=== PATIENT | male | born 1965 | race African-American/Black ===

== ENCOUNTER 2021-05-15 09:57 | Emergency (ER) | payer SELFPAY ==
--- OUTSIDE RECORDS SUMMARY | 2021-05-15 10:00 | XMS REPORT | Continuity of Care Document ---
:1965 Author Organization [facility] t Address [address] [place] [address] Care Team Providers Name Role Phone Asked, Pcp Primary Care Physician Unavailable Problems This patient has no known problems. Allergies, Adverse Reactions, Alerts This patient has no known allergies or adverse reactions. Social History Social Habit Start Date Stop Date Quantity Comments Source Sex Assigned At [address] 1965 [facility] 00:00:00 00:00:00 Smoking Status Start Date Stop Date Source Unknown if ever smoked [facility] Medications This patient has no known medications. Vital Signs Vital Name Observation Time Observation Value Comments Source Systolic blood 2021-05-09 08:11:19 196 mm[Hg] [facility] pressure Diastolic blood 2021-05-09 08:11:19 120 mm[Hg] [facility] pressure Heart rate 2021-05-09 08:11:19 76 /min [facility] Oxygen saturation in 2021-05-09 08:11:19 75 /min [facility] Arterial blood by Pulse oximetry Body temperature 2021-05-09 07:35:00 36.67 [facility] Respiratory rate 2021-05-09 07:35:00 22 /min [facility] Body height 2021-05-09 07:35:00 182.9 cm [facility] Body weight 2021-05-09 07:35:00 68.04 kg [facility] BMI 2021-05-09 07:35:00 20.34 kg/m2 [facility] Procedures This patient has no known procedures. Encounters Start End Encounter Admission Attending Care Care Encounter Source Date/Time Date/Time Type Type Clinicians Facility Department ID 2021-05-092021-05-09 Emergency [id number] [facility] 02:31:00 03:35:[id number] [id number] Hospit [id number] l .8 2021-05-09 2021-05-09 Emergency [facility] [id number] [place] 00:00:00 00:00:[address] Results This patient has no known results.
--- NOTE | 2021-05-15 12:00 | RAD REPORT ---
EXAM DESCRIPTION: CT - Head Brain Wo Cont - 05/15/2021 11:41 am CLINICAL HISTORY: Numbness COMPARISON: None TECHNIQUE: Computed axial tomography of the head was obtained. IV contrast was not requested. All CT scans are performed using dose optimization technique as appropriate and may include automated exposure control or mA/KV adjustment according to patient size. FINDINGS: An intracranial bleed is not seen . The ventricles are normal in caliber. No extra-axial fluid collection is noted. 6 millimeter low-density area right basal ganglia. . Fluid within the sinuses/ mastoids is not seen. IMPRESSION: A 6 millimeter low-density area right basal ganglia probably lacunar infarction. The age is indeterminate. MRI may be helpful for further evaluation
--- NOTE | 2021-05-15 12:59 | RAD REPORT ---
EXAM DESCRIPTION: MRI - Brain Wo Cont - 05/15/2021 12:43 pm CLINICAL HISTORY: lacunar infact 6mm Headache, drowsiness, suspicion of CVA COMPARISON: Head Brain Wo Cont dated 05/15/2021 TECHNIQUE: Multi-sequence, multiplanar MR imaging of the brain was performed without contrast. FINDINGS: No intracranial hemorrhage, hydrocephalus or extra-axial fluid collections.6 mm area of hy perintensity in the right basal ganglia on T2/FLAIR imaging is seen, probably related to prior lacuna r infarct. No DWI signal abnormality seen correlating to this finding to indicate acute infarct. No e ivania or shift of midline structures. No findings to suspect brain mass. Small lipoma noted along the left aspect of the quadrigeminal plate cistern. Midline structures are normally formed. Mastoid air cells and paranasal sinuses are clear. IMPRESSION: Negative for acute CVA or other acute intracranial process.
--- NOTE | 2021-05-15 13:36 | EDPHYS ---
Physician Documentation [facility] Name: Deion Contreras Age: 55 yrs Sex: Male : 1965 Arrival Date: 05/15/2021 Time: 09:59 Bed 11 Private MD: ED Physician Buddy Mazariegos HPI: 05/15 11:06 This 55 yrs old Black Male presents to ER via Ambulatory with complaints of Back Pain, jr8 Headache, Leg Pain. 11:06 Modifying factors: The patient symptoms are alleviated by nothing, the patient symptoms jr8 are aggravated by walking. Severity of symptoms: At their worst the symptoms were moderate, in the emergency department the symptoms are unchanged. The patient has not experienced similar symptoms in the past. This is a 55-year-old male that presented to the emergency room today with headache and chronic low back pain radiating down the left leg. Patient stated that that he has had a headache for the last week but is progressively getting worse.. Historical: - Allergies: 14:27 No Known Allergies; ca1 - Immunization history:: Client reports having NOT received the Covid vaccine. - Social history:: Smoking status: Patient reports the use of cigarette tobacco products, denies chronic smoking, but will smoke occasionally. ROS: 11:06 Eyes: Negative for injury, pain, redness, and discharge, ENT: Negative for injury, jr8 pain, and discharge, Neck: Negative for injury, pain, and swelling, Cardiovascular: Negative for chest pain, palpitations, and edema, Respiratory: Negative for shortness of breath, cough, wheezing, and pleuritic chest pain, Abdomen/GI: Negative for abdominal pain, nausea, vomiting, diarrhea, and constipation, MS/Extremity: Negative for injury and deformity, Skin: Negative for injury, rash, and discoloration. 11:06 Back: Positive for pain at rest, pain with movement, of the low back area. 11:06 Neuro: Positive for headache. Exam: 11:06 Constitutional: This is a well developed, well nourished patient who is awake, alert, jr8 and in no acute distress. Neck: Trachea midline, no thyromegaly or masses palpated, and no cervical lymphadenopathy. Supple, full range of motion without nuchal rigidity, or vertebral point tenderness. No Meningismus. Cardiovascular: Regular rate and rhythm with a normal S1 and S2. No gallops, murmurs, or rubs. Normal PMI, no JVD. No pulse deficits. Respiratory: Lungs have equal breath sounds bilaterally, clear to auscultation and percussion. No rales, rhonchi or wheezes noted. No increased work of breathing, no retractions or nasal flaring. Abdomen/GI: Soft, non-tender, with normal bowel sounds. No distension or tympany. No guarding or rebound. No evidence of tenderness throughout. Back: No spinal tenderness. No costovertebral tenderness. Full range of motion. Skin: Warm, dry with normal turgor. Normal color with no rashes, no lesions, and no evidence of cellulitis. MS/ Extremity: Pulses equal, no cyanosis. Neurovascular intact. Full, normal range of motion. Neuro: Awake and alert, GCS 15, oriented to person, place, time, and situation. Cranial nerves II-XII grossly intact. Motor strength 5/5 in all extremities. Sensory grossly intact. Cerebellar exam normal. Normal gait. Vital Signs: 10:16 BP 177 / 114; Pulse 83; Resp 20; Temp 98.3; Pulse Ox 100% on R/A; Weight 68.04 kg; aa5 10:20 BP 177 / 117; Pulse 83; Resp 18; Temp 98.3; Pulse Ox 100% on R/A; aa5 14:05 BP 205 / 115 RA; Pulse 69; Resp 18 S; Pulse Ox 100% on R/A; ca1 14:11 BP 190 / 110 LA; ca1 15:20 BP 180 / 100; Pulse 72; Resp 16 S; Pulse Ox 100% on R/A; ca1 MDM: 11:08 Patient medically screened. jr8 13:01 ED course: Old lacunar infarct on MRI. No other acute findings. Patient doesn't want jr8 carotid or xray completed . 13:34 Data reviewed: vital signs, nurses notes, lab test result(s), EKG, radiologic studies, jr8 CT scan, MRI. Data interpreted: Pulse oximetry: on room air is 100 %. Interpretation: normal. Counseling: I had a detailed discussion with the patient and/or guardian regarding: the historical points, exam findings, and any diagnostic results supporting the discharge/admit diagnosis, lab results, radiology results, the need for outpatient follow up, a family practitioner, to return to the emergency department if symptoms worsen or persist or if there are any questions or concerns that arise at home. Response to treatment: the patient's symptoms have markedly improved after treatment. ED course: MRI revealed old lacunar infarct. No new findings of acute infarction. Patient does not want labs as well. Will d/c home to f/u. Knows to come back if worse . 05/15 11:05 Order name: CT Head Brain wo Cont; Complete Time: 12:01 8 05/15 12:03 Order name: EKG; Complete Time: 12:04 8 05/15 12:04 Order name: MRI - Brain Wo Cont; Complete Time: 13:00 jr8 05/15 12:03 Order name: Cardiac monitoring; Complete Time: 14:00 jr8 05/15 12:03 Order name: O2 Per Protocol; Complete Time: 14:00 jr8 05/15 12:03 Order name: O2 Sat Monitoring; Complete Time: 14:00 jr8 Administered Medications: 13:59 Not Given (Patient Refused): Dilaudid (HYDROmorphone) 1 mg IM once; RASS on ADMIN: ca1 Combtv4, Very Agttd3, Agttd2, Rstlss1, AlertClm0, Drwsy-1, Lt Sdtn-2, Mod Sdtn-3, Dp Sdtn-4, UnArsble-5 14:02 Drug: [place] (HYDROcodone-acetaminophen) 10 mg-325 mg 1 tabs {Note: rass 0.} Route: PO; ca1 15:19 Follow up: Response: No adverse reaction; Pain is decreased; RASS: Alert and Calm (0) ca1 14:15 Drug: Norvasc (amlodipine) 10 mg Route: PO; ca1 15:19 Follow up: Response: No adverse reaction; Blood pressure is lowered ca1 Disposition Summary: 05/15/21 13:55 Discharge Ordered Location: Home(05/15/21 13:55) 8 Problem: new(05/15/21 13:55) jr8 Symptoms: have improved(05/15/21 13:55) jr8 Condition: Stable(05/15/21 13:55) jr8 Diagnosis - Migraine without aura, not intractable(05/15/21 13:55) jr8 - Sciatica(05/15/21 13:55) jr8 Followup: jr8 - With: Private Physician - When: 2 - 3 days - Reason: Recheck today's complaints, Continuance of care, Re-evaluation by your physician Discharge Instructions: - Discharge Summary Sheet jr8 - Migraine Headache jr8 - Sciatica jr8 Forms: - Medication Reconciliation Form jr8 - Thank You Letter jr8 - Antibiotic Education jr8 - Prescription Opioid Use jr8 Addendum: 05/16/2021 18:10 Co-signature as Attending Physician, Buddy Mazariegos MD I agree with the assessment and k dr plan of care. Signatures: Dispatcher [employer] EDMS Buddy Mazariegos MD MD kdr Jessica Bello RN RN aa5 Kev Emmanuel PA PA jr8 Celia Pena RN RN ca1 Corrections: (The following items were deleted from the chart) 05/15 13:04 12:04 Carotid Artery Bilateral+US.RAD.BRZ ordered. EDMS EDMS 13:51 13:35 Home jr8 8 13:51 13:35 new 8 8 13:51 13:35 have improved jr8 8 13:51 13:35 Stable jr8 jr8 13:51 13:35 Migraine without aura, not intractable jr8 jr8 13:51 13:35 Sciatica jr8 jr8 13:55 12:04 Chest Single View+RAD.RAD.BRZ ordered. EDMS EDMS 13:56 13:34 ED course: MRI revealed old lacunar infarct. No new findings of acute infarction. jr8 jr8 13:59 11:05 Labs collected and sent ordered. jr8 ca1 14:00 11:05 IV Saline Lock ordered. jr8 ca1 14:00 12:03 EKG - Nurse/Tech ordered. jr8 ca1 14:19 12:03 TROPONIN (EMERG DEPT USE ONLY)+C.LAB.BRZ ordered. EDMS EDMS 14:20 11:05 BASIC METABOLIC PANEL+C.LAB.BRZ ordered. EDMS EDMS 14:20 11:05 CBC+H.LAB.BRZ ordered. EDMS EDMS 14:20 11:05 HEPATIC FUNCTION+C.LAB.BRZ ordered. EDMS EDMS 14:20 12:03 PROTIME (+INR)+COAG.LAB.BRZ ordered. EDMS EDMS
--- NOTE | 2021-05-15 13:36 | ER ---
Nurse's Notes [facility] Name: Deion Contreras Age: 55 yrs Sex: Male : 1965 Arrival Date: 05/15/2021 Time: 09:59 Bed 11 Private MD: Diagnosis: Migraine without aura, not intractable;Sciatica Presentation: 05/15 10:16 Chief complaint: Patient states: Back pain and head ache. Coronavirus screen: At this aa5 time, the client does not indicate any symptoms associated with coronavirus-19. Ebola Screen: No symptoms or risks identified at this time. Initial Sepsis Screen: Does the patient meet any 2 criteria? No. Patient's initial sepsis screen is negative. Risk Assessment: Do you want to hurt yourself or someone else? Patient reports no desire to harm self or others. 10:16 Method Of Arrival: Ambulatory aa5 10:16 Acuity: ANDRA 3 aa5 10:21 Acuity: ANDRA 3 aa5 14:27 Initial Sepsis Screen: Does the patient have a suspected source of infection? No. ca1 Patient's initial sepsis screen is negative. Onset of symptoms was May 15, 2021. Triage Assessment: 10:19 General: Appears in no apparent distress. uncomfortable. Pain: Denies pain. Complains aa5 of pain in back Pain at worst was 8 out of 10 on a pain scale. Historical: - Allergies: 14:27 No Known Allergies; ca1 - Immunization history:: Client reports having NOT received the Covid vaccine. - Social history:: Smoking status: Patient reports the use of cigarette tobacco products, denies chronic smoking, but will smoke occasionally. Screenin:27 Abuse screen: Denies threats or abuse. Denies injuries from another. Nutritional ca1 screening: No deficits noted. Tuberculosis screening: No symptoms or risk factors identified. Fall Risk Ambulatory Aid- Crutches/Cane/Walker (15 pts). Total Parker Fall Scale indicates No Risk (0-24 pts). Assessment: 13:45 General: Appears in no apparent distress. comfortable, Behavior is calm, cooperative, ca1 appropriate for age. Pain: Complains of pain in face and scalp and low back area Pain currently is 8 out of 10 on a pain scale. Neuro: Level of Consciousness is awake, alert, obeys commands, Oriented to person, place, time, situation. Cardiovascular: Heart tones S1 Capillary refill < 3 seconds Patient's skin is warm and dry. Cardiovascular: Denies chest pain. Respiratory: Airway is patent Respiratory effort is even, unlabored, Respiratory pattern is regular, symmetrical, Breath sounds are clear bilaterally. GI: Abdomen is flat, non-distended, Bowel sounds present X 4 quads. Abd is soft and non tender X 4 quads. : No deficits noted. EENT: No signs and/or symptoms were reported regarding the EENT system. Derm: Skin is intact, is fragile, is thin, Skin is pink, warm \T\ dry. Musculoskeletal: Circulation, motion, and sensation intact. Capillary refill < 3 seconds. 15:20 Reassessment: Patient appears in no apparent distress at this time. Patient is alert, ca1 oriented x 3, equal unlabored respirations, skin warm/dry/pink. Vital Signs: 10:16 BP 177 / 114; Pulse 83; Resp 20; Temp 98.3; Pulse Ox 100% on R/A; Weight 68.04 kg; aa5 10:20 BP 177 / 117; Pulse 83; Resp 18; Temp 98.3; Pulse Ox 100% on R/A; aa5 14:05 BP 205 / 115 RA; Pulse 69; Resp 18 S; Pulse Ox 100% on R/A; ca1 14:11 BP 190 / 110 LA; ca1 15:20 BP 180 / 100; Pulse 72; Resp 16 S; Pulse Ox 100% on R/A; ca1 ED Course: 09:59 Patient arrived in ED. mr 10:18 Triage completed. aa5 11:04 Kev Emmanuel PA is PHCP. jr8 11:04 Buddy Mazariegos MD is Attending Physician. jr8 11:41 CT Head Brain wo Cont In Process Unspecified. EDMS 12:43 MRI - Brain Wo Cont In Process Unspecified. EDMS 13:59 Celia Pena, ASHER is Primary Nurse. ca1 14:27 Patient has correct armband on for positive identification. Bed in low position. Call ca1 light in reach. Side rails up X2. Pulse ox on. NIBP on. 14:28 Arm band placed on. ca1 15:20 No provider procedures requiring assistance completed. Patient did not have IV access ca1 during this emergency room visit. Administered Medications: 13:59 Not Given (Patient Refused): Dilaudid (HYDROmorphone) 1 mg IM once; RASS on ADMIN: ca1 Combtv4, Very Agttd3, Agttd2, Rstlss1, AlertClm0, Drwsy-1, Lt Sdtn-2, Mod Sdtn-3, Dp Sdtn-4, UnArsble-5 14:02 Drug: [place] (HYDROcodone-acetaminophen) 10 mg-325 mg 1 tabs {Note: rass 0.} Route: PO; ca1 15:19 Follow up: Response: No adverse reaction; Pain is decreased; RASS: Alert and Calm (0) ca1 14:15 Drug: Norvasc (amlodipine) 10 mg Route: PO; ca1 15:19 Follow up: Response: No adverse reaction; Blood pressure is lowered ca1 Outcome: 13:35 Discharge ordered by . logan 13:55 Discharge ordered by MD. logan 15:20 Discharged to home via wheelchair, with family. ca1 15:20 Condition: stable 15:20 Discharge instructions given to patient, Instructed on discharge instructions, follow up and referral plans. Demonstrated understanding of instructions, follow-up care. 15:20 Patient left the ED. ca1 Signatures: Dispatcher [employer] CLAUDIA DavidRhiannon mr BelloJessica RN RN aa5 Kev Emmanuel PA PA jr8 Celia Pena RN RN ca1 Corrections: (The following items were deleted from the chart) 14:12 14:05 BP 205 / 115 R Arm; ca1 ca1
[2021-05-15] MEDS ORDERED: HYDROCODONE/APAP 10/325 TAB ONE (14:24)
[2021-05-15] MEDS ORDERED: AMLODIPINE 10 MG TAB ONE (14:36)
[2021-05-15 15:27] VITALS: TEMP 98.3; O2SAT 100
[2021-05-15 15:34] VITALS: BP 180/100
== END 2021-05-15 15:20 | disposition home or self-care (01) ==
LOC: ER 09:57
DX: G43.009 Migraine without aura, not intractable, without status migrainosus (principal); M54.30 Sciatica, unspecified side; F17.210 Nicotine dependence, cigarettes, uncomplicated
CPT/HCPCS: 70450; 70551; 99284

== ENCOUNTER 2021-08-06 07:16 | Emergency (ER) | payer SELFPAY ==
[2021-08-06 08:51] LABS: Absolute Lymphocytes (CBC) 0.9 K/uL (0.7-4.9); Basophils % 0.7 % (0-1.3); Hematocrit 36.3 % (39.6-49.0); Lymphocytes % 26.8 % (15.3-44.8); MPV 7.7 fL (7.6-11.3); RBC Red Blood Cell Count 4.11 M/uL (4.33-5.43)
[2021-08-06 08:55] LABS: Protime INR 1.03
[2021-08-06 09:18] LABS: ALT/SGPT 18 U/L (12-78); AST/SGOT 13 U/L (15-37); Albumin 2.9 g/dL (3.4-5.0); Alkaline Phosphatase 87 U/L (45-117); BUN Blood Urea Nitrogen 5 mg/dL (7-18); Bicarbonate 24 mmol/L (21-32); Bilirubin Direct 0.1 mg/dL (0-0.2); Bilirubin Total 0.2 mg/dL (0.2-1.0); Glucose Level 72 mg/dL (74-106); NT PRO-BNP 33 pg/mL (<125); Protein, Total 6.4 g/dL (6.4-8.2); Sodium Level 145 mmol/L (136-145); Troponin (Emerg Dept Use Only) < 0.02 ng/mL (0.0-0.045)
[2021-08-06 09:20] LABS: Potassium 2.8 mmol/L (3.5-5.1)
--- NOTE | 2021-08-06 10:22 | EDPHYS ---
Physician Documentation [facility] Name: Deion Contreras Age: 55 yrs Sex: Male : 1965 Arrival Date: 08/06/2021 Time: 07:22 Bed 19 Private MD: ED Physician Joao Dueñas HPI: 08/06 07:55 This 55 yrs old Black Male presents to ER via EMS with complaints of Chest pain and rn back pain. 07:55 The patient or guardian reports chest pain that is located primarily in the left rn breast. Onset: last night. The pain does not radiate. Associated signs and symptoms: Pertinent negatives: abdominal pain, cough, diaphoresis, dizziness, lower extremity swelling, palpitations, shortness of breath, syncope, vomiting. The chest pain is described as sharp, stabbing. Duration: The patient or guardian reports multiple episodes, that are intermittent. Modifying factors: The symptoms are alleviated by nothing. the symptoms are aggravated by nothing. Severity of pain: At its worst the pain was mild in the emergency department the pain is unchanged. The patient has not experienced similar symptoms in the past. The patient has not recently seen a physician. Patient reports left-sided chest pain underneath left nipple, no radiation. Reports also has chronic back pain but got worse this morning. Chest pain began last night/early this morning. No trauma. No fever. Does not feel ill. Denies abdominal pain. Denies vomiting or diarrhea. Denies cough or shortness of breath. No cardiac history. Reports has high blood pressure and compliant with medication and has not run out. Reports chest pain is sharp and intermittent nothing makes it worse or better. Immediately upon presentation patient began fighting with nurses and argumentative refusing almost all interventions and had to be convinced to even get an EKG.. Historical: - Allergies: 07:28 No Known Allergies; ch5 - Home Meds: 07:28 amlodipine [Active]; ch5 - PMHx: 07:28 Hypertensive disorder; ch5 - Immunization history:: Adult Immunizations unknown. - Social history:: Smoking status: unknown. - Family history:: not pertinent. - Hospitalizations: : No recent hospitalization is reported. ROS: 08:03 Constitutional: Negative for fever, chills, and weight loss, Eyes: Negative for injury, rn pain, redness, and discharge, ENT: Negative for injury, pain, and discharge, Neck: Negative for injury, pain, and swelling, Cardiovascular: Negative for palpitations, and edema, Respiratory: Negative for shortness of breath, cough, wheezing Abdomen/GI: Negative for abdominal pain, nausea, vomiting, diarrhea, and constipation, Back: Negative for injury : Negative for injury, bleeding, discharge, and swelling, MS/Extremity: Negative for injury and deformity, Skin: Negative for injury, rash, and discoloration, Neuro: Negative for headache, weakness, numbness, tingling, and seizure. 08:20 All other systems are negative. rn Exam: 08:20 Constitutional: Thin male no acute distress Head/Face: Normocephalic, atraumatic. rn Eyes: Periorbital areas with no swelling, redness, or edema. Cardiovascular: Regular rate and rhythm with a normal S1 and S2. No gallops, murmurs, or rubs. Normal PMI, no JVD. No pulse deficits. Respiratory: Lungs have equal breath sounds bilaterally, clear to auscultation and percussion. No rales, rhonchi or wheezes noted. No increased work of breathing, no retractions or nasal flaring. Abdomen/GI: Soft, non-tender, with normal bowel sounds. No distension or tympany. No guarding or rebound. No evidence of tenderness throughout. Vital Signs: 07:24 BP 166 / 103; Pulse 75; Resp 15; Pulse Ox 100% ; Weight 65.77 kg; Height 5 ft. 11 in. ch5 (180.34 cm); Pain 10/10; 07:42 BP 164 / 109; Pulse 78; Resp 18; Pulse Ox 99% on R/A; kc4 09:20 BP 154 / 93; Pulse 72; Resp 18; Temp 98.3; Pulse Ox 100% ; sl2 07:24 Body Mass Index 20.22 (65.77 kg, 180.34 cm) ch5 MDM: 07:24 Patient medically screened. rn 08:14 ED course: Dr. Lopez on his way will activate Owner [employer] Director and cath here.. rn 08:15 ED course: Chest pain has improved.. rn 09:16 ED course: Patient refusing EKG as well as chest x-ray at this time does not give a rn good reason as to why. Had long discussion with him, another provider has discussed situation as well. Nursing has discussed with patient and patient still refuses EKG and chest x-ray. Allowed nursing to collect blood but at this time refuses all else.. 10:14 ED course: Been in the room at least 5 or 6 times trying to convince patient to get the rn tests that have been ordered, still says needs more time but is leaning towards not getting studies and leaving AGAINST MEDICAL ADVICE. I have printed out previous imaging studies because patient states was told in the past has a brain tumor. Previous MRI does not show brain tumor shows possible chronic lacunar infarct.. 10:19 Differential diagnosis: acute myocardial infarction, acute pericarditis, anxiety, rn coronary artery disease chest wall pain, costochondritis, esophagitis, gastritis, gastroesophageal reflux disease (GERD), pleurisy, pneumothorax, thoracic aortic disection, unstable angina. The patient was not given aspirin in the Emergency Department. Administered by EMS. Data reviewed: vital signs, nurses notes, lab test result(s), EKG. Refusal of service: The patient/guardian displays adequate decision making capability and despite a detailed discussion of alternatives, benefits, risks, and consequences refuses: CT Scan, all X-rays, EKG. 08/06 07:23 Order name: Basic Metabolic Panel rn 08/06 07:23 Order name: CBC with Diff rn 08/06 07:23 Order name: LFT's rn 08/06 07:23 Order name: NT PRO-BNP rn 08/06 07:23 Order name: PT-INR; Complete Time: 09:20 rn 08/06 07:23 Order name: Troponin (emerg Dept Use Only); Complete Time: 09:21 rn 08/06 07:24 Order name: Basic Metabolic Panel; Complete Time: 09:21 EDNE 08/06 07:24 Order name: CBC with Automated Diff; Complete Time: 09:20 EDNE 08/06 07:24 Order name: Liver (Hepatic) Function; Complete Time: 09:21 EDNE 08/06 07:24 Order name: NT PRO-BNP; Complete Time: 09:21 EDNE 08/06 07:23 Order name: IV Saline Lock; Complete Time: 08:41 rn 08/06 07:23 Order name: Labs collected and sent; Complete Time: 08:41 rn Administered Medications: No medications were administered Disposition Summary: 08/06/21 10:21 Left Against Medical Advice Location: Home rn Problem: new rn Symptoms: have improved rn Condition: Stable rn Diagnosis - Chest pain, unspecified rn - Low back pain rn Followup: rn - With: Private Physician - When: As needed - Reason: Recheck today's complaints, Re-evaluation by your physician Discharge Instructions: - Discharge Summary Sheet rn - Chronic Back Pain rn - Nonspecific Chest Pain, Adult rn - Lumbosacral Radiculopathy rn Signatures: Dispatcher [employer] EDMS Joao Dueñas MD MD rn Heath, Christopher, RN RN ch5 Corrections: (The following items were deleted from the chart) 08:14 08:03 Constitutional: Negative for fever, chills, and weight loss, Eyes: Negative for rn injury, pain, redness, and discharge, Neck: Negative for injury, pain, and swelling, Respiratory: Negative for shortness of breath, cough, wheezing rn 08:14 08:03 Constitutional: Negative for fever, chills, and weight loss, Eyes: Negative for rn injury, pain, redness, and discharge, Neck: Negative for injury, pain, and swelling, Cardiovascular: Negative for palpitations, and edema, Respiratory: Negative for shortness of breath, cough, wheezing Abdomen/GI: Negative for abdominal pain, nausea, vomiting, diarrhea, and constipation, Back: Negative for injury : Negative for injury, bleeding, discharge, and swelling, MS/Extremity: Negative for injury and deformity, Skin: Negative for injury, rash, and discoloration, Neuro: Negative for headache, weakness, numbness, tingling, and seizure, rn 10:21 07:24 Angio Aorta For Dissection+CT.RAD.BRZ ordered. EDMS EDMS
--- NOTE | 2021-08-06 10:22 | ER ---
Nurse's Notes [facility] Name: Dieon Contreras Age: 55 yrs Sex: Male : 1965 Arrival Date: 08/06/2021 Time: 07:22 Bed 19 Private MD: Diagnosis: Chest pain, unspecified;Low back pain Presentation: 08/06 07:24 Chief complaint: Patient states: EMS brought in for chest pain this am. Pt clutching 5 chest but refusing to allow nurses to assist. Coronavirus screen: Vaccine status: Patient reports receiving the 1st dose of the Covid vaccine. Ebola Screen: Patient negative for fever greater than or equal to 101.5 degrees Fahrenheit, and additional compatible Ebola Virus Disease symptoms Patient denies exposure to infectious person. Patient denies travel to an Ebola-affected area in the 21 days before illness onset. Initial Sepsis Screen: Does the patient meet any 2 criteria? No. Patient's initial sepsis screen is negative. Initial Sepsis Screen: Does the patient have a suspected source of infection? No. Patient's initial sepsis screen is negative. Risk Assessment: Do you want to hurt yourself or someone else? Patient reports no desire to harm self or others. Onset of symptoms was August 06, 2021. 07:24 Acuity: ANDRA 2 ch5 07:24 Method Of Arrival: EMS: [facility] Triage Assessment: 07:28 General: Appears uncomfortable, Behavior is uncooperative. Pain: Complains of pain in ch5 chest. Historical: - Allergies: 07:28 No Known Allergies; ch5 - Home Meds: 07:28 amlodipine [Active]; ch5 - PMHx: 07:28 Hypertensive disorder; ch5 - Immunization history:: Adult Immunizations unknown. - Social history:: Smoking status: unknown. - Family history:: not pertinent. - Hospitalizations: : No recent hospitalization is reported. Screenin:42 Abuse screen: Denies threats or abuse. Nutritional screening: No deficits noted. kc4 Tuberculosis screening: No symptoms or risk factors identified. Fall Risk None identified. Assessment: 07:33 Reassessment: Patient presents to ED via EMS with c/o chest and back pain. Patient kc4 refuses to be repositioned to facilitate lead placement for EKG and cardiac monitoring. Patient non-compliant, refusing EKG, temperature checks and blood draw. General: Appears distressed, slender, Behavior is uncooperative, Reports chest and back pain 9 of 10. Pain: Denies pain. Complains of pain in chest and back Pain currently is 8 out of 10 on a pain scale. Quality of pain is described as aching, Pain began gradually, Is continuous, Alleviated by repositioning, Aggravated by increased activity, repositioning. Neuro: No deficits noted. Cardiovascular: Chest pain is described as vague, quality is aching. Respiratory: No deficits noted. Airway is patent Trachea midline Respiratory effort is even, unlabored, Respiratory pattern is regular. GI: No deficits noted. : No deficits noted. EENT: No deficits noted. Derm: No deficits noted. Musculoskeletal: Reports pain in chest and back. 07:36 Reassessment: Pt refused all test. Informed pt the importance of doing this test pt ch5 stated, " just give me a second". This nurse informed him that there are other pt that need help. Pt stated, " go help them". Pt has call light and informed him to push call light when he was ready.. 07:47 Reassessment: information technology instructor present at bedside for Chest X-ray, patient refusing chest kc4 X-ray - states he wants to speak with the Doctor first. 07:55 Reassessment: information technology instructor present at bedside for second attempt at completing CXR, [facility] patient refuses, told tech "not right now, come back in a little bit to do it.". 08:38 Reassessment: Patient has allowed staff to complete lab draw, however refuses EKG at [facility] this time. Unable to complete frequent vital signs checks - patient repeatedly remove blood pressure cuff from his arm and cardiac leads from his chest. 08:40 Reassessment: Patient refuses to have IV heplock flushed with saline for line patency, 2 states "I don't want anything injected in me." Patient told that if line is not flushed the blood will clot and IV access will need to be replaced. Patient states I would prefer that you stick me again, but I don't want anything injected into me". 09:20 Reassessment: Patient still refusing to have EKG and Chest X-ray completed at this time.2 09:27 Reassessment: Cath Scan tech present at bedside - patient refusing to have CAT scan sl2 done with contrast states "I dont want anything injected in me. 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 09:30 Reassessment: Dr Nunez present at bedside to speak with patient. sl2 10:00 Reassessment: Patient refuses CAT scan, currently non-complaint refusing all diagnostic sl2 exams that has been ordered except for labs. 10:32 Reassessment: Patient is leaving against medical advise - however refuses to sign sl2 document - Dr Nunez aware of same. Vital Signs: 07:24 BP 166 / 103; Pulse 75; Resp 15; Pulse Ox 100% ; Weight 65.77 kg; Height 5 ft. 11 in. ch5 (180.34 cm); Pain 10/10; 07:42 BP 164 / 109; Pulse 78; Resp 18; Pulse Ox 99% on R/A; kc4 09:20 BP 154 / 93; Pulse 72; Resp 18; Temp 98.3; Pulse Ox 100% ; sl2 07:24 Body Mass Index 20.22 (65.77 kg, 180.34 cm) 5 ED Course: 07:22 Patient arrived in ED. rn 07:24 Joao Dueñas MD is Attending Physician. rn 07:24 Johan Davies, ASHER is Primary Nurse. 5 07:28 Triage completed. 5 07:28 Arm band placed on. 5 07:36 PATIENT REFUSES ALL LABS , EKG . 5 07:39 Patient has correct armband on for positive identification. 5 07:42 Maintain EMS IV. Dressing intact. # 20 to left forearm - patient refusing to have IV kc4 access assessed - non-compliant. 09:02 Clara Frederick, ASHER is Primary Nurse. sl2 Administered Medications: No medications were administered Outcome: 10:43 Patient left the ED. ap3 Signatures: Joao Dueñas MD MD rn Martinez, Maria 5 Skye Sanchez RN RN ap3 Johan Davies, ASHER RN 5 Elda Schulte 4 Clara Frederick, ASHER STERLING 2
[2021-08-06 11:08] VITALS: BP 154/93; TEMP 98.3; O2SAT 100
== END 2021-08-06 10:43 | disposition left against medical advice (07) ==
LOC: ER 07:16
DX: R07.9 Chest pain, unspecified (principal); M54.50 Low back pain, unspecified; I10 Essential (primary) hypertension
CPT/HCPCS: 36415; 80048; 80076; 83880; 84484; 85025; 85610; 99283

== ENCOUNTER 2021-08-07 06:55 | Emergency (ER) | payer SELFPAY ==
[2021-08-07] MEDS ORDERED: DIAZEPAM 5 MG TABLET ONE (07:52)
[2021-08-07] MEDS ORDERED: HYDROCODONE/APAP 10/325 TAB ONE (07:52)
--- NOTE | 2021-08-07 10:23 | RAD REPORT ---
EXAM DESCRIPTION: RAD - Lumbar Spine 3 Views - 08/07/2021 9:42 am CLINICAL HISTORY: back pain COMPARISON: No comparisons FINDINGS: No acute fracture of the lumbar spine. Mild multilevel degenerate disc disease with disc h eight loss and mild endplate spurring. The vertebral body heights are maintained. IMPRESSION: No acute osseous abnormality involving the lumbar spine..
--- NOTE | 2021-08-07 12:39 | EDPHYS ---
Physician Documentation [facility] Name: Deion Contreras Age: 55 yrs Sex: Male : 1965 Arrival Date: 08/07/2021 Time: 06:53 Bed 6 Private MD: ED Physician Alonzo Astorga HPI: 08/07 07:07 This 55 yrs old Black Male presents to ER via EMS with complaints of Back Pain. jmm 07:07 The patient presents with pain that is chronic, with no known mechanism of injury. jmm Onset: The symptoms/episode began/occurred gradually, 1 month(s) ago. The pain radiates to the lumbar area. Associated signs and symptoms: Pertinent negatives: abdominal pain, chest pain, fever, hematuria, incontinence, numbness, tingling. This is a 55-year-old male with a history of hypertension the presents emerged part with complaints of lower back pain which been ongoing for the past month. Patient states that he was here yesterday with chest pain and back pain. Patient did refuse CT aorta due to his disliking of IV contrast. Patient states he has mainly been in bed due to pain over the past month. Patient denies any weakness in his legs, incontinence urinary or fecal, fever.. Historical: - Allergies: 06:57 ibuprofen; bb - Home Meds: 06:57 Amlodipine [Active]; bb - PMHx: 06:57 Hypertensive disorder; bb - Immunization history:: Adult Immunizations up to date, Client reports receiving the 2nd dose of the Covid vaccine. - Social history:: Smoking status: Patient denies any tobacco usage or history of. Patient/guardian denies using alcohol, street drugs. ROS: 07:07 Constitutional: Negative for fever, chills, and weight loss, Cardiovascular: Negative jmm for chest pain, palpitations, and edema, Respiratory: Negative for shortness of breath, cough, wheezing, and pleuritic chest pain. 07:07 Back: Positive for pain with movement. 07:07 All other systems are negative. Exam: 07:07 Constitutional: This is a well developed, well nourished patient who is awake, alert, jmm and in no acute distress. Head/Face: atraumatic. Eyes: EOMI, no conjunctival erythema appreciated ENT: Moist Mucus Membranes Neck: Trachea midline, Supple Chest/axilla: Normal chest wall appearance and motion. Cardiovascular: Regular rate and rhythm. No edema appreciated Respiratory: Normal respirations, no respiratory distress appreciated Abdomen/GI: Non distended, soft 07:07 Back: pain, that is moderate, of the lumbar area. 07:07 Neuro: Orientation: is normal, Mentation: is normal, Memory: is normal, Extensor hallucis longus intact bilaterally. 07:07 Psych: Behavior/mood is pleasant, cooperative. Vital Signs: 06:55 BP 171 / 107; Pulse 70; Resp 20 S; Temp 97.4(O); Pulse Ox 100% on R/A; Weight 54.43 kg bb (R); Height 6 ft. 1 in. (185.42 cm) (R); Pain 7/10; 08:13 BP 157 / 72; Pulse 70; Resp 18; Pulse Ox 100% on R/A; ap3 09:07 BP 175 / 88; Pulse 79; Resp 18; Pulse Ox 99% on R/A; ap3 09:30 BP 102 / 70; Pulse 76; Pulse Ox 98% on R/A; ap3 10:52 BP 139 / 56; Pulse 71; Pulse Ox 100% on R/A; ap3 11:35 Pulse 76; Resp 18; Pulse Ox 100% on R/A; ap3 06:55 Body Mass Index 15.83 (54.43 kg, 185.42 cm) bb MDM: 07:07 Patient medically screened. [facility] 11:46 Refusal of service: The patient/guardian displays adequate decision making capability [facility] and despite a detailed discussion of alternatives, benefits, risks, and consequences refuses: CT Scan. 12:13 Data reviewed: vital signs, nurses notes. Counseling: I had a detailed discussion with [facility] the patient and/or guardian regarding: the historical points, exam findings, and any diagnostic results supporting the discharge/admit diagnosis, radiology results, the need for outpatient follow up, to return to the emergency department if symptoms worsen or persist or if there are any questions or concerns that arise at home. 12:37 ED course: Patient refused MRI for further evaluation of his back. I do not currently [facility] suspect cord compression or cauda equina or spinal abscess. Patient was notified that the MRI would be able to further evaluate his pain due to also complaining of neck pain. But patient refused. Patient appears to be able to make rational decisions.. 08/07 07:46 Order name: Lumbar Spine (3 Views) XRAY; Complete Time: 10:26 [facility] Administered Medications: 07:28 Not Given (Patient Refused): morphine 4 mg IVP once; RASS on ADMIN: Combtv4, Very kc4 Agttd3, Agttd2, Rstlss1, AlertClm0, Drwsy-1, Lt Sdtn-2, Mod Sdtn-3, Dp Sdtn-4, UnArsble-5 07:28 Not Given (Patient Refused): Zofran (Ondansetron) 4 mg IVP once; over 2 minutes kc4 07:29 Drug: [place] (HYDROcodone-acetaminophen) 10 mg-325 mg 1 tabs Route: PO; kc4 09:01 Follow up: Response: No adverse reaction; RASS: Alert and Calm (0) ap3 07:29 Drug: Valium (diazepam) 5 mg Route: PO; kc4 09:01 Follow up: Response: No adverse reaction ap3 Disposition: 08/08 04:44 Co-signature as Attending Physician, Alonzo Astorga MD. [email or web address] Disposition Summary: 08/07/21 12:38 Discharge Ordered Location: Home [facility] Condition: Stable [facility] Diagnosis - Low back pain [facility] Followup: [facility] - With: Private Physician - When: 2 - 3 days - Reason: Recheck today's complaints, Continuance of care, Re-evaluation by your physician Followup: [facility] - With: Arjun Avila MD - When: 2 - 3 days - Reason: Recheck today's complaints, Continuance of care, Re-evaluation by your physician Discharge Instructions: - Discharge Summary Sheet [facility] - Chronic Back Pain [facility] Forms: - Medication Reconciliation Form [facility] - Thank You Letter [facility] - Antibiotic Education [facility] - Prescription Opioid Use [facility] Prescriptions: - Voltaren 1 % Topical gel - apply 2 gram by TOPICAL route 4 times per day; 1 tube; Refills: 0, Product [facility] Selection Permitted - Zanaflex 4 mg Oral Tablet - take 1 tablet by ORAL route every 8 hours As needed; 20 tablet; Refills: 0, [facility] Product Selection Permitted - Tramadol 50 mg Oral Tablet - take 1 tablet by ORAL route every 8 hours as needed; 12 tablet; Refills: 0, [facility] Product Selection Permitted Signatures: Dispatcher [employer] EDMS Ned Apple PA PA jmm Ballard, Brenda, RN RN bb Alonzo Astorga MD MD [id number] Elda Schulte 4 Skye Sanchez RN ap3 Corrections: (The following items were deleted from the chart) 08/07 07:28 07:11 IV Saline Lock ordered. luis kc4 07:49 07:12 [facility] Protocol+CT.RAD.BRZ ordered. EDMS EDMS
--- NOTE | 2021-08-07 12:39 | ER ---
Nurse's Notes [facility] Name: Deion Contreras Age: 55 yrs Sex: Male : 1965 Arrival Date: 08/07/2021 Time: 06:53 Bed 6 Private MD: Diagnosis: Low back pain Presentation: 08/07 06:55 Chief complaint: EMS states: they were toned out for report of pt with worsening back bb pain pt was seen here yesterday for chest pain and uses a wheelchair due to leg weakness pt has chronic back pain. Coronavirus screen: At this time, the client does not indicate any symptoms associated with coronavirus-19. Ebola Screen: No symptoms or risks identified at this time. Initial Sepsis Screen: Does the patient meet any 2 criteria? No. Patient's initial sepsis screen is negative. Does the patient have a suspected source of infection? No. Patient's initial sepsis screen is negative. Risk Assessment: Do you want to hurt yourself or someone else? Patient reports no desire to harm self or others. Onset of symptoms was August 07, 2021. 06:55 Method Of Arrival: EMS: [facility] bb 06:55 Acuity: ANDRA 3 bb Historical: - Allergies: 06:57 ibuprofen; bb - Home Meds: 06:57 Amlodipine [Active]; bb - PMHx: 06:57 Hypertensive disorder; bb - Immunization history:: Adult Immunizations up to date, Client reports receiving the 2nd dose of the Covid vaccine. - Social history:: Smoking status: Patient denies any tobacco usage or history of. Patient/guardian denies using alcohol, street drugs. Screenin:30 Abuse screen: Denies threats or abuse. Nutritional screening: No deficits noted. kc4 Tuberculosis screening: No symptoms or risk factors identified. Fall Risk Fall in past 12 months (25 points). Secondary diagnosis (15 points) impaired mobility, No IV (0 pts). Ambulatory Aid- Crutches/Cane/Walker (15 pts). Gait- Weak (10 pts.). Mental Status- Oriented to own ability (0 pts). Total Parker Fall Scale indicates High Risk Score (45 or more points). Fall prevention measures have been instituted. Side Rails Up X 2 Placed Close to Nursing Station Frequent Obs/Assessments Occuring As available patient and family educated on Fall Prevention Program and Strategies. Assessment: 07:29 General: Appears uncomfortable, Behavior is calm. Pain: Complains of pain in back Pain kc4 currently is 10 out of 10 on a pain scale. Pain began gradually, 1 day ago. Neuro: Level of Consciousness is awake, alert, obeys commands, Oriented to person, place, time, situation, Speech is normal. Cardiovascular: Patient's skin is warm and dry. Respiratory: Airway is patent Respiratory effort is even, unlabored, Respiratory pattern is regular, symmetrical. Musculoskeletal: Reports pain in back. 08:16 Reassessment: Patient and/or family updated on plan of care and expected duration. Pain ap3 level reassessed. Patient is alert, oriented x 3, equal unlabored respirations, skin warm/dry/pink. Patient states symptoms have improved. 09:01 Reassessment: No changes from previously documented assessment. Patient and/or family ap3 updated on plan of care and expected duration. Pain level reassessed. Patient is alert, oriented x 3, equal unlabored respirations, skin warm/dry/pink. 10:21 Reassessment: No changes from previously documented assessment. Patient and/or family ap3 updated on plan of care and expected duration. Pain level reassessed. Patient is alert, oriented x 3, equal unlabored respirations, skin warm/dry/pink. 10:52 Reassessment: No changes from previously documented assessment. Patient and/or family ap3 updated on plan of care and expected duration. Pain level reassessed. Patient is alert, oriented x 3, equal unlabored respirations, skin warm/dry/pink. Vital Signs: 06:55 BP 171 / 107; Pulse 70; Resp 20 S; Temp 97.4(O); Pulse Ox 100% on R/A; Weight 54.43 kg bb (R); Height 6 ft. 1 in. (185.42 cm) (R); Pain 7/10; 08:13 BP 157 / 72; Pulse 70; Resp 18; Pulse Ox 100% on R/A; ap3 09:07 BP 175 / 88; Pulse 79; Resp 18; Pulse Ox 99% on R/A; ap3 09:30 BP 102 / 70; Pulse 76; Pulse Ox 98% on R/A; ap3 10:52 BP 139 / 56; Pulse 71; Pulse Ox 100% on R/A; ap3 11:35 Pulse 76; Resp 18; Pulse Ox 100% on R/A; ap3 06:55 Body Mass Index 15.83 (54.43 kg, 185.42 cm) ED Course: 06:53 Patient arrived in ED. bb 06:57 Triage completed. 06:57 Ned Apple PA is PHCP. [facility] 06:57 Alonzo Astorga MD is Attending Physician. [facility] 06:57 Arm band placed on Patient placed in an exam room, on a stretcher, on pulse oximetry. bb 07:21 Elda Schulte is Primary Nurse. kc4 07:30 Bed in low position. Call light in reach. Side rails up X2. Pulse ox on. NIBP on. Door kc4 closed. Noise minimized. Lights dimmed. Warm blanket given. 09:41 Lumbar Spine (3 Views) XRAY In Process Unspecified. EDMS 12:38 Arjun Avila MD is Referral Physician. [facility] 12:56 No provider procedures requiring assistance completed. Patient did not have IV access ap3 during this emergency room visit. Administered Medications: 07:28 Not Given (Patient Refused): morphine 4 mg IVP once; RASS on ADMIN: Combtv4, Very kc4 Agttd3, Agttd2, Rstlss1, AlertClm0, Drwsy-1, Lt Sdtn-2, Mod Sdtn-3, Dp Sdtn-4, UnArsble-5 07:28 Not Given (Patient Refused): Zofran (Ondansetron) 4 mg IVP once; over 2 minutes kc4 07:29 Drug: [place] (HYDROcodone-acetaminophen) 10 mg-325 mg 1 tabs Route: PO; kc4 09:01 Follow up: Response: No adverse reaction; RASS: Alert and Calm (0) ap3 07:29 Drug: Valium (diazepam) 5 mg Route: PO; kc4 09:01 Follow up: Response: No adverse reaction ap3 Outcome: 12:38 Discharge ordered by . [facility] 12:56 Discharged to home via wheelchair. ap3 12:56 Condition: good 12:56 Discharge instructions given to patient, Instructed on discharge instructions, follow up and referral plans. medication usage, Demonstrated understanding of instructions, follow-up care, medications, Prescriptions given X 3. 13:20 Patient left the ED. ap3 Signatures: Dispatcher [employer] EDMS Ned Apple PA PA jmm Ballard, Brenda RN RN bb Skye Sanchez RN RN ap3 Elda Schulte4
[2021-08-07 13:27] VITALS: TEMP 97.4
[2021-08-07 13:33] VITALS: BP 139/56; O2SAT 100
== END 2021-08-07 13:20 | disposition home or self-care (01) ==
LOC: ER 06:55
DX: M54.50 Low back pain, unspecified (principal); I10 Essential (primary) hypertension; Z88.6 Allergy status to analgesic agent
CPT/HCPCS: 72100; 99284

== ENCOUNTER 2022-01-25 06:51 | Emergency (ER) | payer SELFPAY ==
--- NOTE | 2022-01-25 07:26 | ER ---
Nurse's Notes [facility] Name: Deion Contreras Age: 56 yrs Sex: Male : 1965 Arrival Date: 01/25/2022 Time: 06:53 Bed Waiting Private MD: Diagnosis: Assessment: 01/25 06:59 General: PD called. Patient refusing to get off EMS stretcher. tw5 Vital Signs: 06:55 BP 192 / 107; Pulse 75; Pulse Ox 99% on R/A; tw5 06:55 patient refusing temp. tw5 ED Course: 06:53 Patient arrived in ED. ds4 07:10 moved from EMS stretcher to his own wheelchair with assistance. ll1 07:24 Patient placed in waiting room, in a wheelchair, refused to be triaged. States he ll1 doesn't want to be seen anymore. Administered Medications: No medications were administered Outcome: 07:25 Patient left the ED. ll1 Signatures: Campbell Colin ds4 Randa Mcdermott RN RN ll1 Veronica Orosco tw5
[2022-01-25 07:38] VITALS: BP 192/107; O2SAT 99
== END 2022-01-25 07:25 | disposition left against medical advice (07) ==
LOC: ER 06:51
DX: Z02.9 Encounter for administrative examinations, unspecified (principal)

== ENCOUNTER 2025-07-12 09:57 | Emergency (ER) | payer OTHER ==
--- OUTSIDE RECORDS SUMMARY | 2025-07-12 10:01 | XMS REPORT | Continuity of Care Document ---
Author Name Unknown Address [address] [facility] [address] [place] [address] [facility] Address [address] [facility] [place] [address] Care Team Providers Care Manager Payer Name Role Phone No , Pcp Primary Care Physician Unavailab ADAN Conway Attending Clinician Unavailable EMMANUEL MARTIN Attending Clinician Unavailable Audrey Aguilar MD Attending Clinician [phone] AUDREY AGUILAR Attending Clinician Unava ilable Linda Donaldson MA Attending Clinician Unavailable Debra Liriano MD Attending Clinician [phone] PATRICK NOVAK Attending Clinician Unavailable YONG AYALA Attending Clinician Unava ilable Payers Payer Name Policy Type Policy Number Effective Date Expirati on Date Source [place] [employer] [employer] [id number] 2022 00:00:00 [employer] Medicaid [id number] 2022 00:00:00 Allergies, Adverse Reactions, Alerts Allergy Name Allergy Type Status Severity Reaction(s) Onset Date Inactive Date Treating Clinician Comments Source ALLERGIE S NOT ON FILE SYSTEMIC Active Memoria macy Stratton ALLERGIE S NOT ON FILE SYSTEMIC Active Dionoria macy Stratton Social History Social Habit Start Date Stop Date Quantity Comments Source Gender identity 2024-01-01 02:38:45 Identifies as male gender (finding) Aron Stratton Sexual orientation M jeremi Stratton Tobacco use and exposure 2024-03-15 00:00:00 2024-03-15 00:00:00 Smokeless tobacco non-user [facility] Alcoholic beverage intake 2024-03-15 00:00:00 2024-03-15 00:00:00 Lifetime non-drinker (finding) [facility] History of Social function 2024-03-15 00:00:00 2024-03-15 00:00:00 [facility] Sex 2024-01-17 12:26:26 2024-01-17 12:26:26 Male (finding) [facility] Sex assigned at 1965 00:00:00 1965 00:00:00 [facility] Smoking Status Start Date Stop Date Source [facility] Never smoked tobacco [place] Medications Ordered Medication Name Filled Medication Name Start Date Stop Date Current Medication? Ordering Clinician Indication Dosage Frequency Signature (SIG) Comments Components Source lisinopril 20 MG tablet lisinopril 20 MG tablet 01-29 00:00: 00 Yes 20mg QD Take 20 mg by mouth 1 time each day. Ilene Stratton traZODone (Desyrel) 100 MG tablet traZODone (Desyrel) 100 MG tablet 01-25 00:00: 00 Yes 100mg Take 100 mg by mouth at bedtime. Ilene Henson [facility] Pataday 0.7 % solution Pataday 0.7 % solution 01-25 00:00: 00 Yes Ilene Henson [facility] nabumetone (Relafen) 500 MG tablet nabumetone (Relafen) 500 MG tablet 01-25 00:00: 00 Yes Ilene Henson [facility] DULoxetine (Cymbalta) [address] capsule DULoxetine (Cymbalta) [address] capsule 01-25 00:00: 00 Yes Ilnee Henson [facility] amLODIPine (Norvasc) 10 MG tablet amLODIPine (Norvasc) 10 MG tablet 01-25 00:00: 00 Yes Ilene Henson [facility] tiZANidine (Zanaflex) 4 MG tablet tiZANidine (Zanaflex) 4 MG tablet 12-27 00:00: 00 Yes 4mg Q.5D Take 4 mg by mouth in the morning and 4 mg in the evening. Ilene Henson [facility] butalbital- acetaminoph en-caffeine (Fioricet) 50-300-40 MG capsule butalbital- acetaminoph en-caffeine (Fioricet) 50-300-40 MG capsule 12-25 00:00: 00 Yes Ilene Stratton Pataday 0.7 % solution 03-11 00:00: 00 Yes 1[drp] QD Administer 1 drop into both eyes 1 (one) time each day. [facility] Diclofenac Sodium (Voltaren) 1 % external gel 03-11 00:00: 00 Yes APPLY 1 GRAM TOPICALLY TO THE AFFECTED AREA FOUR TIMES DAILY NEEDED FOR PAIN [facility] lisinopril 20 MG tablet 02-25 00:00: 00 Yes 20mg QD Take 20 mg by mouth 1 (one) time each day. [facility] amLODIPine (Norvasc) 10 MG tablet 02-24 00:00: 00 Yes 10mg QD Take 10 mg by mouth 1 (one) time each day. [facility] baclofen (Lioresal) 10 MG tablet 02-16 00:00: 00 Yes 10mg Q.5D Take 10 mg by mouth in the morning and 10 mg in the evening. [facility] nabumetone (Relafen) 500 MG tablet 02-16 00:00: 00 Yes [facility] gabapentin (Neurontin) 300 MG capsule 02-10 00:00: 00 Yes 300mg Q.[id number] 3D Take 300 mg by mouth in the morning and 300 mg at noon and 300 mg in the evening. [facility] tiZANidine (Zanaflex) 6 MG capsule 02-07 00:00: 00 Yes TAKE 1 CAPSULE BY MOUTH TWO TIMES PER DAY [facility] cyclobenzap rine (Flexeril) 10 MG tablet 01-05 00:00: 00 Yes [facility] chlorthalid one (Hygroton) 25 MG tablet 01-05 00:00: 00 Yes [facility] traMADol (Ultram) 50 MG tablet -20 00:00: 00 Yes [facility] tiZANidine (Zanaflex) 4 MG tablet - 00:00: 00 Yes 4mg Q.5D Take 4 mg by mouth in the morning and 4 mg before bedtime. [facility] methocarbam ol (Robaxin) 750 MG tablet - 00:00: 00 Yes 750mg Q.[id number] 3D Take 750 mg by mouth 3 (three) times a day if needed for muscle spasms. [facility] Vital Signs Vital Name Observation Time Observation Value Comments S rolly Body height 2024-03-15 17:23:00 175.3 cm [facility] Body weight 2024-03-15 17:23:00 63.504 kg [facility] BMI 2024-03-15 17:23:00 20.67 kg/m2 [facility] Procedures Procedure Date / Time Performed Performing Clinician Source Transthoracic echo (TTE) complete 2025-02-13 00:00:00 [facility] ECG 12 lead [facility] Plan of Care Planned Activity Planned Date Details Comments Source Encounters Start Date/Time End Date/Time Encounter Type Admission Type Attending Clinicians Care Facility Care Department Encounter ID Source 2025-05-20 14:00:00 2025-05-20 14:00:[address] [facility] [id number] [facility] 2025-04-10 14:30:00 2025-04-10 14:30:[address] [facility] [id number] [facility] 2025-04-02 13:00:00 2025-04-02 13:00:[address] [facility] [id number] [facility] 2025-03-07 08:30:00 2025-03-07 08:30:[address] [facility] [id number] [facility] 2025-02-14 13:00:00 2025-02-18 01:07:43 External Contacts Audrey Aguilar [facility] LOCATION [id number] [facility] 2025-02-14 13:31:16 2025-02-14 23:59:00 Outpatient Informatio n Not Available [facility] [id number] [facility] 2025-02-14 13:08:25 2025-02-14 23:59:00 Outpatient Informatio n Not Available AUDREY AGUILAR [facility]OUT [facility] [id number] [facility] 2025-02-14 13:06:47 2025-02-14 23:59:00 Outpatient Elective [facility] [id number] [facility] 2025-02-14 13:00:00 2025-02-14 14:00:00 Consult MarbelladeniAudrey weinberg Kei [facility] [id number] Ilene cavazos [facility] 2025-02-13 00:00:00 2025-02-13 08:48:44 Orders Only Donaldson Linda Nicky Donaldsonhy [facility] [id number] Ilene cavazos [facility] 2024-03-15 12:00:00 2024-03-15 13:00:[address] [facility] [id number] [facility] 2024-03-15 11:15:00 2024-03-15 13:00:44 Office Visit Debra Liriano [place] Physician s [facility] [id number] [facility] 2024-03-06 09:00:00 2024-03-06 09:00:[address] [facility] [id number] [facility] 2024-03-01 11:00:00 2024-03-01 11:00:[address] [facility] [id number] [facility] 2024-02-20 13:05:00 2024-02-20 13:05:[address] [facility] [id number] [facility] 2024-02-20 13:00:00 2024-02-20 13:00:[address] [facility] [id number] [facility] 2024-02-20 13:00:00 2024-02-20 13:00:[address] [facility] [id number] [facility] 2024-01-24 14:30:00 2024-01-24 23:59:00 Outpatient Elective YONG AYALA [facility] Procedural [id number] Ilene Henson [facility] 2024-01-24 14:30:00 2024-01-24 23:59:00 Outpatient Elective YONG AYALA [facility] Procedural [id number] Ilene Henson [facility] Notes Transthoracic echo (TTE) completeEncounter Date: 02/14/25Chest painHypertensionAlso appears to be on duloxetine and hailey tone therapy and the reasoning SAMY Celayaending Results Date/Time Note Provider Source 2025-03-07 12:28:35 Audrey Aguilar MD - 02/14/2025 1:00 PM CDT [facility] New Patient Visit Referring Provider: No ref. provider found Chief Complaint: New patient, here for chest pains History of Present Illness Patient is a 59-year-old male who appeared in a wheelchair in a neck brace with concerns for chest pain. Unfortunately attempting to get further history patient noted that this is not my business and would ideally like his test results in order to further disclose any further information discussed with him about the findings of the echo and the EKG but patient was not willing to provide any further information and essentially stated that he he just wants the problem to be fixed. And when attempting to find out further history regarding his chest pain he was not cooperative and continued to provide any further history. Son requested about why he requires a wheelchair he stated that he was not pertinent to his history. Past medical history: Unwilling to disclose Family history: Unwilling to disclose Social history" unwilling to disclose No past surgical history on file. No family history on file. Social History Substance and Sexual Activity Drug Use Not on file Tobacco Use: Low Risk (03/15/2024) Received from [facility] Patient History Smoking Tobacco Use: Never Smokeless Tobacco Use: Never Passive Exposure: Not on file Alcohol Use: Not on file Not on File Current Outpatient Medications Medication Instructions amLODIPine (Norvasc) 10 MG tablet soiwflkusr-huhzugbtuxyoh-lvucdshh (Fioricet) 50-300-40 MG capsule DULoxetine (Cymbalta) [address] capsule lisinopril 20 mg, Daily nabumetone (Relafen) 500 MG tablet Pataday 0.7 % solution tiZANidine (ZANAFLEX) 4 mg, 2 times daily traZODone (DESYREL) 100 mg, Nightly Review of Systems: Review of Systems Constitutional: Negative for decreased appetite, weight gain and weight loss. HENT: Negative for congestion. Cardiovascular: Positive for chest pain. Respiratory: Negative for cough, shortness of breath and sputum production. Gastrointestinal: Negative for bloating and abdominal pain. Physical Exam: There were no vitals taken for this visit. Unwilling to have his vitals checked General: alert, oriented, not in distress, in a wheelchair Neck; no JVD Lungs: Clear to auscultation bilateral, no rales, no wheezes Heart: S1, S2 Abdomen: soft, non tender, non distended, BS+ Extremities: no Lower extremity edema Skin: no rashes Laboratory Data: No results found for: "GLUCOSE", "CREATININE", "BUN", "K", "NA", "CO2", "CALCIUM", "MG", "ALBUMIN", "PROT", "ALT", "AST", "BILITOT", "WBC", "HGB", "HCT", "PLT", "CHOL", "TRIG", "HDL", "LDL", "HGBA1C", "TSH", "PROBNP", "BNP", "VITD25", "PSA", "CMVPCR", "EBVPCR", "TACROLIMUS", "SIROLIMUS", "LDH", "INR" Result Date: 02/25/2025 Left Ventricle: Left ventricle size is normal. Mildly increased wall thickness in the left ventricle. Normal systolic function with an estimated EF of 55 - 60%. LVEF 3D is 56%. LV GLS is -13.3%. Left Atrium: Left atrium size is normal. Right Atrium: Right atrium size is normal. Aortic Valve: Aortic valve is trileaflet. Mildly thickened leaflets in the aortic valve. Mild annular calcification in the aortic valve. No aortic regurgitation present. No aortic stenosis present. Mitral Valve: Mitral valve is structurally normal. No mitral regurgitation present. No mitral stenosis present. Tricuspid Valve: Tricuspid valve is structurally normal. Trace tricuspid regurgitation present. RVSP is 18.00 mmHg. RAP is 3.00 mmHg. No tricuspid valve stenosis present. Pulmonic Valve: Pulmonic valve is structurally normal. Trace pulmonic regurgitation present. No pulmonic valve stenosis present. IVC/SVC: IVC diameter is normal. Normal respiratory variation. Aorta: Normal sized aortic root present. Pericardium: No pericardial effusion present. ECG 12 lead Result Value Ventricular Rate 73 Atrial Rate 73 NH Interval 126 QRS Duration 70 QT/QTc 368 QTc Calculation 405 P-[place] 71 R-[place] 75 T-[place] 56 Impression SINUS RHYTHM NORMAL ECG -EKG in clinic today demonstrates sinus rhythm with no significant ST-T wave abnormalities. - Echocardiogram with preserved ejection fraction and no significant valvular abnormalities. - Unfortunately is unable to order any additional testing given the lack of history that he was unable to and willing to provide. 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 - Currently remains on amlodipine 10 mg daily and lisinopril 20 mg daily. Unclear as to why he is wheelchair-bound He is on xqbzzpyqyq-ARSS-xkgettcr therapy as to the etiology is unclear also unclear. 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 be more respectful to the staff. [facility] Due Date Last Done Comments CT Colonography 1965 Colonoscopy 1965 Colorectal Cancer Screening 1965 FIT-DNA 1965 FIT 1965 FOBT 1965 Lipid Panel 1965 Sigmoidoscopy 1965 Annual Physical 1967 DTaP/Tdap/Td Vaccines (1 - Tdap) 1983 Pneumococcal Vaccine: 50+ Ye ars (1 of 1 - PCV) 2014 Zoster Vaccines (1 of 2) 2014 Influenza Vaccine (Season Ended) 2025 Respiratory Syncytial Virus (RSV) Adult Series (1 - 1-dose 75+ series) 2039 HIB Vaccines Aged Out No longer eligi ble based on patient's age to complete this topic HPV Vaccines Aged Out No longer eligi ble based on patient's age to complete this topic Hepatitis A Vaccines Aged Out No long er eligible based on patient's age to complete this topic Hepatitis B Vaccines Aged Out No long er eligible based on patient's age to complete this topic IPV Vaccines Aged Out No longer eligi ble based on patient's age to complete this topic Meningococcal Vaccine Aged Out No yazan prabhu eligible based on patient's age to complete this topic Pneumococcal Vaccine: Pediat rics (0 to 5 Years) and At-Risk Patients (6 to 64 Years) Aged Out No longer eligible b ased on patient's age to complete this topic Rotavirus Vaccines Aged Out No longer eligible based on patient's age to complete this topic [id number]28[facility]35 Diagnosis Chest pain, unspecified type [id number] 12:28:35 [id number] 08:48:51* Imaging (Routine) - Pending Review Specialty Diagnoses / Procedures Referred By Michael gee Referred To Contact Cardiology Diagnoses Precordial pain Procedures Transthoracic echo (TTE) complete NH ECHO TTHRC R-T 2D W/WOM-MODE COMPL SPEC&COLR D NH ECHO TRANSTHORAC R-T 2D W/WO M-MODE REC COMP Audrey Aguilar MD [address] [place] [address] Phone: tel: fax: Referral ID Status Reason Start Date Expiration Date Visits Requested Visits Authorized [id number] Pending Review Perform Procedure 02/13/2025 08/12/2025 1 1 [id number] 08:48:51Upcoming Encounters Scheduled Orders Name Type Priority Associated Diagnoses Order Schedule Transthoracic echo (TTE) complete Echocardiography Routine Precordial pain Expected: 02/13/2025 (Approximate), Expires: 02/13/2027 Health Maintenance Due Date Last Done Comments CT Colonography 1965 Colonoscopy 1965 Colorectal Cancer Screening 1965 FIT-DNA 1965 FIT 1965 FOBT 1965 Lipid Panel 1965 Sigmoidoscopy 1965 Annual Physical 1967 DTaP/Tdap/Td Vaccines (1 - Tdap) 1983 Pneumococcal Vaccine: 50+ Ye ars (1 of 1 - PCV) 2014 Zoster Vaccines (1 of 2) 2014 Influenza Vaccine (Season Ended) 2025 Respiratory Syncytial Virus (RSV) Adult Series (1 - 1-dose 75+ series) 2039 HIB Vaccines Aged Out No longer eligi ble based on patient's age to complete this topic HPV Vaccines Aged Out No longer eligi ble based on patient's age to complete this topic Hepatitis A Vaccines Aged Out No long er eligible based on patient's age to complete this topic Hepatitis B Vaccines Aged Out No long er eligible based on patient's age to complete this topic IPV Vaccines Aged Out No longer eligi ble based on patient's age to complete this topic Meningococcal Vaccine Aged Out No yazan prabhu eligible based on patient's age to complete this topic Pneumococcal Vaccine: Pediat rics (0 to 5 Years) and At-Risk Patients (6 to 64 Years) Aged Out No longer eligible b ased on patient's age to complete this topic Rotavirus Vaccines Aged Out No longer eligible based on patient's age to complete this topic [facility] [id number] 08:48:51 Diagnosis Precordial pain [facility] [id number] 08:48:51 Aron Henson
--- NOTE | 2025-07-12 10:14 | EDPHYS ---
Physician Documentation [facility] Name: Deion Contreras Age: 59 yrs Sex: Male : 1965 Arrival Date: 07/12/2025 Time: 09:57 Bed 19 Private MD: ED Physician Kamala Iraheta HPI: 07/12 10:46 This 59 yrs old Black Male presents to ER via Wheelchair with complaints of Pain All dr5 Over, Headache. 10:46 Onset: The symptoms/episode began/occurred Chronic. Patient is a 59-year-old male with dr5 history of chronic back pain, chronic generalized pain, hypertension coming in with generalized pain that is been going on for the past couple months. Patient reports he had appointment Dr. Shin this morning but was late and had to reschedule. Patient states that his appointment was rescheduled for July 23 of this month. Patient denies take any pain medication at home or having any medication. Patient denies any recent trauma or falls.. Historical: - Allergies: 10:11 Ibuprofen; dd2 - PMHx: 10:11 chronic back pain; Hypertension; dd2 - PSHx: 10:11 None; dd2 - Immunization history:: Adult Immunizations unknown. - Infectious Disease History:: Denies. - Social history:: Smoking status: Patient reports the use of cigarette tobacco products, smokes one-half pack cigarettes per day. ROS: 10:46 Constitutional: as per hpi dr5 Exam: 10:46 Constitutional: This is a well developed, well nourished patient who is awake, alert, dr5 and in no acute distress. Head/Face: Normocephalic, atraumatic. Eyes: Pupils equal round and reactive to light, extra-ocular motions intact. Lids and lashes normal. Conjunctiva and sclera are non-icteric and not injected. Cornea within normal limits. Periorbital areas with no swelling, redness, or edema. Neck: Trachea midline, no thyromegaly or masses palpated, and no cervical lymphadenopathy. Supple, full range of motion without nuchal rigidity, or vertebral point tenderness. No Meningismus. Chest/axilla: Normal chest wall appearance and motion. Nontender with no deformity. No lesions are appreciated. Cardiovascular: Regular rate and rhythm with a normal S1 and S2. Normal PMI, no JVD. No pulse deficits. Respiratory: Lungs have equal breath sounds bilaterally, clear to auscultation. No rales, rhonchi or wheezes noted. No increased work of breathing, no retractions or nasal flaring. Back: No spinal tenderness. No costovertebral tenderness. Full range of motion. Skin: Warm, dry with normal turgor. Normal color with no rashes, no lesions, and no evidence of cellulitis. MS/ Extremity: Pulses equal, no cyanosis. Neurovascular intact. Full, normal range of motion. Neuro: Awake and alert, GCS 15, oriented to person, place, time, and situation. Cranial nerves II-XII grossly intact. Motor strength 5/5 in all extremities. Sensory grossly intact. Cerebellar exam normal. Normal gait. Vital Signs: 10:09 BP 189 / 100; Pulse 72; Resp 17; Temp 98.3; Pulse Ox 100% ; Pain 9/10; dd2 10:09 Pain Scale: Adult dd2 MDM: 10:05 Medical Screening Exam initiated dr5 10:46 Differential diagnosis: viral Infection, Fracture, trauma, sprain, chronic pain. Data dr5 reviewed: vital signs, nurses notes. Consideration of Admission/Observation Escalation of care including admission/observation considered. Escalation considered patient found to have fever or acute pain. I considered the following discharge prescriptions or medication management in the emergency department I discussed and recommended Over The Counter medications, Medications were administered in the Emergency Department. See MAR. Test considered but Not performed: X-ray: X-ray considered of hand but patient did not fall or head trauma and no abnormalities on physical exam.. Care significantly affected by the following chronic conditions: Chronic back pain, hypertension. Care significantly affected by the following Social Determinants of Health: Poor access to healthcare and/or lack of insurance, Poor access to transportation, Problems related to employment. Counseling: I had a detailed discussion with the patient and/or guardian regarding the historical points, exam findings, and any diagnostic results supporting the discharge/admit diagnosis, the presence of at least one elevated blood pressure reading (>120/80) during this emergency department visit, the need for outpatient follow up, for definitive care, a family practitioner, to return to the emergency department if symptoms worsen or persist or if there are any questions or concerns that arise at home. Medication response: [place]. Response to treatment: the patient's symptoms have mildly improved after treatment. Special discussion: Based on the history and exam findings, there is no indication for further emergent testing or inpatient evaluation. I discussed with the patient/guardian the need to see the primary care provider for further evaluation of the symptoms. Administered Medications: 10:35 Drug: HYDROcodone-acetaminophen PO 5 mg-325 mg 2 tabs PO once Route: PO; db 10:39 Follow up: Response: No adverse reaction db Disposition Summary: 07/12/25 10:14 Discharge Ordered Notes: Location: Home dr5 Condition: Stable dr5 Diagnosis - Pain in left shoulder dr5 - Essential (primary) hypertension dr5 Followup: dr5 - With: Emergency Department - When: As needed - Reason: Worsening of condition Followup: dr5 - With: Private Physician - When: 07-23-[address] Shin - Reason: Discharge Instructions: - Discharge Summary Sheet dr5 - Hypertension, Adult dr5 Forms: - Medication Reconciliation Form dr5 - Prescription Opioid Use dr5 - Patient Portal Instructions dr5 - Leadership Thank You Letter dr5 Prescriptions: - amlodipine 10 mg Oral tablet - take 1 tablet ORAL route daily; 20 tablet; Refills: 0, Product Selection dr5 Permitted - Lisinopril 10 mg Oral Tablet - take 1 tablet ORAL route once daily; 20 tablet; Refills: 0, Product Selection dr5 Permitted - Cyclobenzaprine 10 mg Oral Tablet - take 1 tablet ORAL route every 8 hours As needed; 30 tablet; Refills: 0, dr5 Product Selection Permitted - Hydralazine 25 mg Oral tablet - take 1 tablet ORAL route once daily with food; 30 tablet; Refills: 0, Product dr5 Selection Permitted - Tramadol 50 mg Oral Tablet - take 1 tablet ORAL route every 8 hours as needed; 12 tablet; Refills: 0, dr5 Product Selection Permitted Signatures: Twyla Borjas, RN RN TROY Langley RN RN dd2 Yamil Howell, ACCOUNTS RECEIVABLE PROCESSOR-C ACCOUNTS RECEIVABLE PROCESSOR-Cdr5
--- NOTE | 2025-07-12 10:14 | ER ---
Nurse's Notes [facility] Name: Deion Contreras Age: 59 yrs Sex: Male : 1965 Arrival Date: 07/12/2025 Time: 09:57 Bed 19 Private MD: Diagnosis: Pain in left shoulder;Essential (primary) hypertension Presentation: 07/12 10:09 Chief complaint: Patient states: LT HAND PAIN AND SWELLING, LT SHOULDER PAIN, PAIN ALL dd2 OVER AND HEADACHE X 3 DAYS. Coronavirus screen: At this time, the client does not indicate any symptoms associated with coronavirus-19. Ebola Screen: No symptoms or risks identified at this time. Initial Sepsis Screen: Does the patient meet any 2 criteria? No. Patient's initial sepsis screen is negative. Does the patient have a suspected source of infection? No. Patient's initial sepsis screen is negative. Risk Assessment: Do you want to hurt yourself or someone else? Patient reports no desire to harm self or others. Onset of symptoms was July 09, 2025. 10:09 Method Of Arrival: Wheelchair dd2 10:09 Acuity: ANDRA 4 dd2 Triage Assessment: 10:11 Headache History: The patient has had previous headaches and this one is similar to dd2 previous episodes. General: Appears in no apparent distress. uncomfortable, Behavior is calm, cooperative, appropriate for age. Pain: Complains of pain in left hand and anterior aspect of left shoulder, head, generalized body Pain currently is 9 out of 10 on a pain scale. Pain began 2-3 days ago. Also complains of no other associated symptoms. Neuro: Reports headache in entire. Musculoskeletal: Reports pain in left hand and anterior aspect of left shoulder. Historical: - Allergies: 10:11 Ibuprofen; dd2 - PMHx: 10:11 chronic back pain; Hypertension; dd2 - PSHx: 10:11 None; dd2 - Immunization history:: Adult Immunizations unknown. - Infectious Disease History:: Denies. - Social history:: Smoking status: Patient reports the use of cigarette tobacco products, smokes one-half pack cigarettes per day. Screenin:39 [facility] ED Fall Risk Assessment (Adult) History of falling in the last 3 months, db including since admission No falls in past 3 months (0 pts) Confusion or Disorientation No (0 pts) Intoxicated or Sedated No (0 pts) Impaired Gait No (0 pts) Mobility Assist Device Used No (0 pt) Altered Elimination No (0 pt) Score/Fall Risk Level 0 - 2 = Low Risk Oriented to surroundings, Maintained a safe environment. Abuse screen: Denies threats or abuse. Denies injuries from another. Nutritional screening: No deficits noted. Tuberculosis screening: No symptoms or risk factors identified. Assessment: 10:39 Reassessment: Patient appears in no apparent distress at this time. Patient and/or db family updated on plan of care and expected duration. Pain level reassessed. Patient is alert, oriented x 3, equal unlabored respirations, skin warm/dry/pink. General: Appears in no apparent distress. comfortable, Behavior is calm, cooperative. Pain: Complains of pain in head. Neuro: Level of Consciousness is awake, alert, obeys commands, Oriented to person, place, time, situation. Respiratory: Airway is patent Respiratory effort is even, unlabored, Respiratory pattern is regular, symmetrical. Vital Signs: 10:09 BP 189 / 100; Pulse 72; Resp 17; Temp 98.3; Pulse Ox 100% ; Pain 9/10; dd2 10:09 Pain Scale: Adult dd2 ED Course: 10:04 Patient arrived in ED. cj3 10:04 Yamil Howell FNP-C [facility]. [facility]5 10:04 Kamala Iraheta MD is Attending Physician. dr5 10:11 Triage completed. dd2 10:11 Arm band placed on right wrist. dd2 10:39 Patient has correct armband on for positive identification. Bed in low position. Call db light in reach. Side rails up X 1. Provided Education on: DISCHARGE AND PRESCRIPTIONS. 10:39 No provider procedures requiring assistance completed. Patient did not have IV access db during this emergency room visit. Administered Medications: 10:35 Drug: HYDROcodone-acetaminophen PO 5 mg-325 mg 2 tabs PO once Route: PO; db 10:39 Follow up: Response: No adverse reaction db Medication: 10:39 VIS not applicable for this client. db Outcome: 10:14 Discharge ordered by . dr5 10:39 Discharged to home via wheelchair, db 10:39 Condition: stable 10:39 Discharge instructions given to patient, Instructed on discharge instructions, follow up and referral plans. Prescriptions given X 2, 10:41 Patient left the ED. db Signatures: Twyla Borjas, RN RN db TROY MOORE RN RN dd2 Yamil Howell, ANNEALING FURNACE OPERATOR-C ANNEALING FURNACE OPERATOR-Cdr5 Rose Edmond cj3
[2025-07-12] MEDS ORDERED: HYDROCODONE/APAP 5/325 MG TAB ONE (10:30)
[2025-07-12 10:47] VITALS: BP 189/100; TEMP 98.3; O2SAT 100
== END 2025-07-12 10:41 | disposition home or self-care (01) ==
LOC: ER 09:57
DX: M25.512 Pain in left shoulder (principal); I10 Essential (primary) hypertension; F17.210 Nicotine dependence, cigarettes, uncomplicated
CPT/HCPCS: 99283

== ENCOUNTER 2025-07-23 11:32 | Emergency (ER) | payer OTHER ==
--- OUTSIDE RECORDS SUMMARY | 2025-07-23 11:36 | XMS REPORT | Continuity of Care Document ---
Author Name Unknown Address [address] [place] [address] [facility] [place] Address [address] [place] [address] Care Team Providers Care Financial Writer Name Role Phone No , Pcp Primary Care Physician Unavailab ADAN Conway Attending Clinician Unavailable EMMANUEL MARTIN Attending Clinician Unavailable Audrey Aguilar MD Attending Clinician AUDREY AGUILAR Attending Clinician Unava ilable Linda Donaldson MA Attending Clinician Unavailable Debra Liriano MD Attending Clinician PATRICK NOVAK Attending Clinician Unavailable YONG AYALA Attending Clinician Unava ilable Payers Payer Name Policy Type Policy Number Effective Date Expirati on Date Source [place] [employer] [id number] 2022 00:00:00 [employer] Medicaid [id number] 2022 00:00:00 Allergies, Adverse Reactions, Alerts Allergy [...] gender (finding) Aron Stratton Sexual orientation M emorirobin Stratton Tobacco use and exposure 2024-03-15 00:00:00 2024-03-15 00:00:00 Smokeless tobacco non-user [facility] Alcoholic beverage intake 2024-03-15 00:00:00 2024-03-15 00:00:00 Lifetime non-drinker (finding) [facility] History of Social function 2024-03-15 00:00:00 2024-03-15 00:00:00 [facility] Sex 2024-01-17 12:26:26 2024-01-17 12:26:26 Male (finding) [facility] Sex assigned at 1965 00:00:00 1965 00:00:00 [facility] Smoking Status Start Date Stop Date Source Tobacco smoking consumption unknown [facility] Never smoked tobacco [facility] Medications Ordered Medication Name Filled Medication Name [...] mg by mouth at bedtime. Ilene Henson [facility] Pataday 0.7 % solution Pataday 0.7 % solution 01-25 00:00: 00 Yes Ilene Henson [facility] nabumetone (Relafen) 500 MG tablet nabumetone (Relafen) 500 MG tablet 01-25 00:00: 00 Yes Ilene Henson [facility] DULoxetine (Cymbalta) [address] capsule DULoxetine (Cymbalta) [address] capsule 01-25 00:00: 00 Yes Ilene Henson [facility] amLODIPine (Norvasc) 10 MG tablet amLODIPine (Norvasc) 10 MG tablet 01-25 00:00: 00 Yes Ilene Henson [facility] tiZANidine (Zanaflex) 4 MG tablet tiZANidine (Zanaflex) 4 MG tablet 20 00:00: 00 Yes 4mg Q.5D Take 4 mg by mouth in the morning and 4 mg in the evening. Ilene Henson [facility] butalbital- acetaminoph en-caffeine (Fioricet) 50-300-40 MG capsule butalbital- acetaminoph en-caffeine (Fioricet) 50-300-40 MG capsule 12-25 00:00: 00 Yes Ilene Henson [place] Pataday 0.7 % solution 03-11 00:00: 00 Yes 1[drp] QD Administer 1 drop into both eyes 1 (one) time each day. [facility] Diclofenac Sodium (Voltaren) 1 % external gel 03-11 00:00: 00 Yes APPLY 1 GRAM TOPICALLY TO THE AFFECTED AREA FOUR TIMES DAILY NEEDED FOR PAIN [facility] lisinopril 20 MG tablet 02-25 00:00: 00 Yes 20mg QD Take 20 mg by mouth 1 (one) time each day. [facility] amLODIPine (Norvasc) 10 MG tablet 02-24 00:00: 00 Yes 10mg QD Take 10 mg by mouth 1 (one) time each day. [facility] baclofen (Lioresal) 10 MG tablet 02-16 00:00: 00 Yes 10mg Q.5D Take 10 mg by mouth in the morning and 10 mg in the evening. [facility] nabumetone (Relafen) 500 MG tablet 02-16 00:00: 00 Yes [facility] gabapentin (Neurontin) 300 MG capsule 02-10 00:00: 00 Yes 300mg [id number] 3D Take 300 mg by mouth in the morning and 300 mg at noon and 300 mg in the evening. [facility] tiZANidine (Zanaflex) 6 MG capsule 02-07 00:00: 00 Yes TAKE 1 CAPSULE BY MOUTH TWO TIMES PER DAY [facility] cyclobenzap rine (Flexeril) 10 MG tablet 01-05 00:00: 00 Yes [facility] chlorthalid one (Hygroton) 25 MG tablet - 00:00: 00 Yes [facility] traMADol (Ultram) 50 MG tablet -20 00:00: 00 Yes [facility] tiZANidine (Zanaflex) 4 MG tablet 1-16 00:00: 00 Yes 4mg Q.5D Take 4 mg by mouth in the morning and 4 mg before bedtime. [facility] methocarbam ol (Robaxin) 750 MG tablet 16 00:00: 00 Yes 750mg [id number] 3D Take 750 mg by mouth 3 (three) times a day if needed for muscle spasms. [facility] Vital Signs Vital Name Observation Time Observation Value Elliot lofton Body height 2024-03-15 17:23:00 175.3 cm [facility] Body weight 2024-03-15 17:23:00 63.504 kg [facility] BMI 2024-03-15 17:23:00 20.67 kg/m2 [facility] Procedures Procedure Date / Time Performed Performing Clinician Source Transthoracic echo (TTE) complete 2025-02-13 00:00:00 [facility] ECG 12 lead [facility] Plan of Care Planned Activity Planned Date Details Comments Source Encounters Start Date/Time End Date/Time Encounter Type Admission Type Attending [facility] Care Department Encounter ID Source 2025-05-20 14:00:00 2025-05-20 14:00:00 Outpatient LUNBAADAN [facility] [id number] [facility] 2025-04-10 14:30:00 2025-04-10 14:30:00 Outpatient KHADIJAHEMMANUEL LEON [facility] [id number] [facility] 2025-04-02 13:00:00 2025-04-02 13:00:00 Outpatient LUBNAADAN [facility] [id number] [facility] 2025-03-07 08:30:00 2025-03-07 08:30:00 Outpatient MARIO EMMANUEL [facility] [id number] [facility] 2025-02-14 13:00:00 2025-02-18 01:07:43 External Contacts Audrey Aguilar EXT [facility] LOCATION [id number] [facility] 2025-02-14 13:31:16 2025-02-14 23:59:00 Outpatient Informatio n Not Available EOUT EOUT [id number] EOUT 2025-02-14 13:08:25 2025-02-14 23:59:00 Outpatient Informatio n Not Available AUDREY AGUILAR MHEOUT MHEOUT [id number] [facility] 2025-02-14 13:06:47 2025-02-14 23:59:00 Outpatient Elective MHEOUT MHEOUT [id number] [facility] 2025-02-14 13:00:00 2025-02-14 14:00:00 Consult Audrey Aguilar Kei [facility] [address] [facility] [id number] Dionsaundra macy [facility] 2025-02-13 00:00:00 2025-02-13 08:48:44 Orders Only Linda Donaldson Kathy [facility] [address] [facility] [id number] Dionsaundra macy [facility] 2024-03-15 12:00:00 2024-03-15 13:00:44 Outpatient [facility] [id number] [facility] 2024-03-15 11:15:00 2024-03-15 13:00:44 Office Visit Debra Liriano [place] Physician [facility] [id number] [facility] 2024-03-06 09:00:00 2024-03-06 09:00:00 Outpatient [facility] [id number] [facility] 2024-03-01 11:00:00 2024-03-01 11:00:00 Outpatient [facility] [id number] [facility] 2024-02-20 13:05:00 2024-02-20 13:05:00 Outpatient [facility] [id number] [facility] 2024-02-20 13:00:00 2024-02-20 13:00:00 Outpatient SCARLET PATRICK [facility] [id number] [facility] 2024-02-20 13:00:00 2024-02-20 13:00:00 Outpatient [facility] [id number] [facility] 2024-01-24 14:30:00 2024-01-24 23:59:00 Outpatient Elective YONG AYALA IEEPIC Procedural [id number] Ilene Henson [facility] 2024-01-24 14:30:00 2024-01-24 23:59:00 Outpatient Elective YONG AYALA MHCLARKEEPIC [facility]ural [id number] Notes Transthoracic echo (TTE) completeEncounter Date: 02/14/25Chest painHypertensionAlso appears to be on duloxetine and hailey tone therapy and the reasoning SAMY Celayaending Results Date/Time Note Provider Source 2025-03-07 12:28:35 Audrey Aguilar MD - 02/14/2025 1:00 PM CDT [facility] New Patient Visit [...] Tobacco Use: Low Risk (03/15/2024) Received from [facility] Patient History Smoking Tobacco Use: Never Smokeless Tobacco Use: Never Passive Exposure: Not on file Alcohol Use: Not on file Not on File Current Outpatient Medications Medication Instructions amLODIPine (Norvasc) 10 MG tablet sqxdjgzxin-ryextwunrvxlm-peyihhxx (Fioricet) 50-300-40 MG capsule DULoxetine (Cymbalta) 30 [...] Value Ventricular Rate 73 Atrial Rate 73 OK Interval 126 QRS Duration 70 QT/QTc 368 QTc Calculation 405 P-[place] 71 R-[place] 75 T-[place] 56 Impression SINUS RHYTHM NORMAL ECG -EKG [...] 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 - Currently remains on amlodipine 10 mg daily and lisinopril 20 mg daily. Unclear as to why he is wheelchair-bound He is on moqpkcnirh-QYPI-uwgabmgz therapy as to the etiology is unclear also unclear. 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 be more respectful to the staff. T [facility] Due Date Last Done Comments CT Colonography [...] patient's age to complete this topic [id number] 12:28:35 Diagnosis Chest pain, unspecified type [id number] 12:28:35 [id number] 08:48:51* Imaging (Routine) - Pending Review Specialty Diagnoses / Procedures Referred By Contac t Referred To Contact Cardiology Diagnoses Precordial pain Procedures Transthoracic echo (TTE) complete [place] ECHO TTHRC R-T 2D W/WOM-MODE COMPL SPEC&COLR D [place] ECHO TRANSTHORAC R-T 2D W/WO M-MODE REC COMP Audrey Aguilar MD [address] [address] Phone: tel: fax: Referral ID Status Reason Start Date Expiration Date Visits Requested Visits Authorized [id number] Pending Review Perform Procedure 02/13/2025 08/12/2025 1 1 [id number] 08:48:51Upcoming Encounters Scheduled Orders Name Type Priority [...] on patient's age to complete this topic Aron [id number] 08:48:51 Diagnosis Precordial pain Aron [id number] 08:48:51 Aron Henson
[2025-07-23] MEDS ORDERED: ONDANSETRON 4 MG (ODT) TAB ONE (11:43)
[2025-07-23] MEDS ORDERED: DIAZEPAM 5 MG TABLET ONE (11:44)
[2025-07-23] MEDS ORDERED: HYDROCODONE/APAP 5/325 MG TAB ONE (11:44)
--- NOTE | 2025-07-23 13:21 | EDPHYS ---
Physician Documentation [facility] Name: Deion Contreras Age: 59 yrs Sex: Male : 1965 Arrival Date: 07/23/2025 Time: 11:21 Bed 25 Private MD: ED Physician Joao Dueñas HPI: 07/23 13:23 This 59 yrs old Black Male presents to ER via Wheelchair with complaints of Back Pain - kb lower, Abdominal Pain, Neck Pain, Headache, Nausea. 13:23 Patient is a 59-year-old male who presents for headache, back pain, abdominal pain that kb started while he was on the bus on the way to his primary care checkup. 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 Reports nausea due to pain. States this has happened multiple times in the past and the pain is exactly the same. States he missed his doctor's appointment because of the bus ride as well.. Historical: - Allergies: 11:32 Ibuprofen; db - PMHx: 11:32 chronic back pain; Hypertension; db - Immunization history:: Adult Immunizations unknown. - Infectious Disease History:: Denies. - Social history:: Smoking status: unknown. ROS: 13:23 Constitutional: As per HPI kb Exam: 13:23 Constitutional: This is a well developed, well nourished patient who is awake, alert, kb and in no acute distress. Head/Face: Normocephalic, atraumatic. ENT: Moist Mucous membranes Respiratory: Respirations even and unlabored. No increased work of breathing. Talking in full sentences Abdomen/GI: Soft, non-tender. No distention Back: No spinal tenderness. No costovertebral tenderness. Full range of motion. Skin: Warm, dry with normal turgor. Normal color. Neuro: Awake and alert, GCS 15, oriented to person, place, time, and situation. 13:23 Musculoskeletal/extremity: Exam is negative for acute changes, Vital Signs: 11:28 BP 158 / 111; Pulse 79; Resp 18; Temp 97.7; Pulse Ox 100% ; db 12:37 BP 112 / 92; Pulse 71; Resp 18; Pulse Ox 100% ; rg5 13:00 BP 149 / 106; Pulse 76; Pulse Ox 100% ; rg5 MDM: 11:23 Medical Screening Exam initiated kb 13:25 Differential diagnosis: Chronic pain, strain. Data reviewed: vital signs, nurses notes. kb Counseling: I had a detailed discussion with the patient and/or guardian regarding the historical points, exam findings, and any diagnostic results supporting the discharge/admit diagnosis, the need for outpatient follow up, a family practitioner, to return to the emergency department if symptoms worsen or persist or if there are any questions or concerns that arise at home. ED course: Reviewed previous records. Patient has been seen for similar complaints multiple times in the past, most recently with the same story of exacerbated pain due to the bus ride. Considered labs, CT but patient reports pain is similar to previous. Administered Medications: 11:48 Drug: Ondansetron Oral Disintegrating Tablet Oral Disintegrating Tablet 4 mg PO once db Route: PO; 12:28 Follow up: Response: No adverse reaction rg5 11:48 Drug: HYDROcodone-acetaminophen PO 5 mg-325 mg 1 tabs PO once Route: PO; db 12:28 Follow up: Response: No adverse reaction rg5 11:48 Drug: Diazepam PO 5 mg PO once Route: PO; db 12:28 Follow up: Response: No adverse reaction rg5 Disposition: 16:06 Co-signature as Attending Physician, Joao Dueñas MD I reviewed the patient's care rn provided by the Advanced Practice Provider and agree with the diagnosis and treatment plan. Disposition Summary: 07/23/25 13:20 Discharge Ordered Notes: Location: Home kb Condition: Stable kb Diagnosis - Chronic pain syndrome kb - Essential (primary) hypertension kb Followup: kb - With: Emergency Department - When: As needed - Reason: Worsening of condition Followup: kb - With: Private Physician - When: 2 - 3 days - Reason: Recheck today's complaints, Continuance of care, Re-evaluation by your physician Discharge Instructions: - Discharge Summary Sheet kb - Chronic Pain, Adult kb Forms: - Medication Reconciliation Form kb - Antibiotic Education kb - Prescription Opioid Use kb - Patient Portal Instructions kb - Leadership Thank You Letter kb Signatures: Lilly Bojorquez FNP-C FNP-Joao Devries MD MD rn Benton, Danielle, RN RN db Gallardo, Rommel RN rg5
--- NOTE | 2025-07-23 13:21 | ER ---
Nurse's Notes [facility] Name: Deion Contreras Age: 59 yrs Sex: Male : 1965 Arrival Date: 07/23/2025 Time: 11:21 Bed 25 Private MD: Diagnosis: Chronic pain syndrome;Essential (primary) hypertension Presentation: 07/23 11:28 Chief complaint: Patient states: BACK PAIN, NECK PAIN AND HEADACHE. PAIN IS CHRONIC. db STATES MISSED DOCTORS APPOINTMENT. Coronavirus screen: Client denies travel out of the [place] in the last 14 days. At this time, the client does not indicate any symptoms associated with coronavirus-19. Ebola Screen: Patient negative for fever greater than or equal to 101.5 degrees Fahrenheit, and additional compatible Ebola Virus Disease symptoms Patient denies exposure to infectious person. Patient denies travel to an Ebola-affected area in the 21 days before illness onset. No symptoms or risks identified at this time. Initial Sepsis Screen: Does the patient meet any 2 criteria? No. Patient's initial sepsis screen is negative. Does the patient have a suspected source of infection? No. Patient's initial sepsis screen is negative. Risk Assessment: Do you want to hurt yourself or someone else? Patient reports no desire to harm self or others. Onset of symptoms was July 23, 2025. 11:28 Method Of Arrival: Wheelchair db 11:28 Acuity: ANDRA 3 db Triage Assessment: 11:32 General: Appears in no apparent distress. comfortable, Behavior is calm, cooperative. db Pain: Complains of pain in back. Pain: Complains of pain in head and back. Neuro: Level of Consciousness is awake, alert, obeys commands, Oriented to person, place, time, situation. Musculoskeletal: Circulation, motion, and sensation intact. Capillary refill < 3 seconds. Historical: - Allergies: 11:32 Ibuprofen; db - PMHx: 11:32 chronic back pain; Hypertension; db - Immunization history:: Adult Immunizations unknown. - Infectious Disease History:: Denies. - Social history:: Smoking status: unknown. Screenin:28 [facility] ED Fall Risk Assessment (Adult) History of falling in the last 3 months, rg5 including since admission Yes- single mechanical fall (1 pt) Confusion or Disorientation No (0 pts) Intoxicated or Sedated No (0 pts) Impaired Gait Yes (1 pt) Mobility Assist Device Used Yes (1 pt) Altered Elimination Yes (1 pt) Score/Fall Risk Level 3 or more points = High Risk Oriented to surroundings, Maintained a safe environment. Abuse screen: Denies threats or abuse. Nutritional screening: No deficits noted. Tuberculosis screening: No symptoms or risk factors identified. Assessment: 12:28 General: Appears in no apparent distress. uncomfortable, Behavior is calm, cooperative, rg5 appropriate for age. Pain: Complains of pain in chest and abdomen Quality of pain is described as aching. Neuro: Level of Consciousness is awake, alert, obeys commands, Oriented to person, place, time, situation. Cardiovascular: Patient's skin is warm and dry. Respiratory: Airway is patent Respiratory effort is even, unlabored. GI: Abdomen is flat, non-distended. : No signs and/or symptoms were reported regarding the genitourinary system. EENT: No signs and/or symptoms were reported regarding the EENT system. Derm: Skin is intact, Skin is dry, Skin is normal. Musculoskeletal: Circulation, motion, and sensation intact. Range of motion: limited in left leg, right leg \T\ left hand. 13:05 Reassessment: No changes from previously documented assessment. Patient and/or family rg5 updated on plan of care and expected duration. Pain level reassessed. Patient is alert, oriented x 3, equal unlabored respirations, skin warm/dry/pink. Vital Signs: 11:28 BP 158 / 111; Pulse 79; Resp 18; Temp 97.7; Pulse Ox 100% ; db 12:37 BP 112 / 92; Pulse 71; Resp 18; Pulse Ox 100% ; rg5 13:00 BP 149 / 106; Pulse 76; Pulse Ox 100% ; rg5 ED Course: 11:21 Patient arrived in ED. cj3 11:22 Lilly Bojorquez FNP-C [facility]. kb 11:22 Joao Dueñas MD is Attending Physician. kb 11:32 Triage completed. db 11:32 Arm band placed on Patient placed in an exam room. db 12:27 Edilson Rojas, RN is Primary Nurse. rg5 12:28 Patient has correct armband on for positive identification. Door closed. Noise rg5 minimized. 12:28 No provider procedures requiring assistance completed. rg5 13:35 Patient did not have IV access during this emergency room visit. rg5 Administered Medications: 11:48 Drug: Ondansetron Oral Disintegrating Tablet Oral Disintegrating Tablet 4 mg PO once db Route: PO; 12:28 Follow up: Response: No adverse reaction rg5 11:48 Drug: HYDROcodone-acetaminophen PO 5 mg-325 mg 1 tabs PO once Route: PO; db 12:28 Follow up: Response: No adverse reaction rg5 11:48 Drug: Diazepam PO 5 mg PO once Route: PO; db 12:28 Follow up: Response: No adverse reaction rg5 Medication: 12:28 VIS not applicable for this client. rg5 Outcome: 13:20 Discharge ordered by MD. mcghee 13:35 Discharged to home via wheelchair, rg5 13:35 Condition: stable 13:35 Discharge instructions given to patient, Instructed on discharge instructions, follow up and referral plans. Demonstrated understanding of instructions, 13:35 Patient left the ED. rg5 Signatures: Lilly Bojorquez, AGNES MINOR-Twyla Craig RN RN Edilson Rojas RN RN rg5 Rose Edmond 3
[2025-07-23 21:24] VITALS: O2SAT 100
[2025-07-23 21:26] VITALS: BP 149/106
== END 2025-07-23 13:35 | disposition home or self-care (01) ==
LOC: ER 11:32
DX: G89.4 Chronic pain syndrome (principal); I10 Essential (primary) hypertension
CPT/HCPCS: 99283; Q0162

== ENCOUNTER 2025-07-31 12:32 | Emergency (ER) | payer OTHER ==
--- NOTE | 2025-07-31 14:48 | EDPHYS ---
Physician Documentation [facility] Name: Deion Contreras Age: 59 yrs Sex: Male : 1965 Arrival Date: 07/31/2025 Time: 12:32 Bed 7 Private MD: ED Physician Ruddy Carias HPI: 07/31 14:37 This 59 yrs old Black Male presents to ER via Wheelchair with complaints of Pain All arsen Over, Medication Refill. 14:37 The patient presents to the emergency department requesting refill(s) for: norvasc, arsen lisinopril, pain meds,duloxetine. The patient has experienced similar episodes in the past, multiple times. Historical: - Allergies: 12:41 Ibuprofen; bp - PMHx: 12:41 chronic back pain; Hypertension; bp - Immunization history:: Adult Immunizations up to date. - Infectious Disease History:: Denies. - Social history:: Smoking status: Patient denies any tobacco usage or history of. ROS: 14:39 Constitutional: Negative for fever, chills, and weight loss, Eyes: Negative for injury, arsen pain, redness, and discharge, ENT: Negative for injury, pain, and discharge, Neck: Negative for injury, pain, and swelling, Cardiovascular: Negative for chest pain, palpitations, and edema, Respiratory: Negative for shortness of breath, cough, wheezing, and pleuritic chest pain, Abdomen/GI: Negative for abdominal pain, nausea, vomiting, diarrhea, and constipation, : Negative for injury, bleeding, discharge, and swelling, MS/Extremity: Negative for injury and deformity, Skin: Negative for injury, rash, and discoloration, Neuro: Negative for headache, weakness, numbness, tingling, and seizure, Psych: Negative for depression, anxiety, suicide ideation, homicidal ideation, and hallucinations, Allergy/Immunology: Negative for hives, rash, and allergies, Endocrine: Negative for neck swelling, polydipsia, polyuria, polyphagia, and marked weight changes, Hematologic/Lymphatic: Negative for swollen nodes, abnormal bleeding, and unusual bruising, 14:39 Back: Positive for decreased range of motion, pain with movement, Exam: 14:39 Constitutional: This is a well developed, well nourished patient who is awake, alert, arsen and in no acute distress. Head/Face: Normocephalic, atraumatic. Eyes: Pupils equal round and reactive to light, extra-ocular motions intact. Lids and lashes normal. Conjunctiva and sclera are non-icteric and not injected. Cornea within normal limits. Periorbital areas with no swelling, redness, or edema. ENT: Nares patent. No nasal discharge, no septal abnormalities noted. Tympanic membranes are normal and external auditory canals are clear. Oropharynx with no redness, swelling, or masses, exudates, or evidence of obstruction, uvula midline. Mucous membranes moist. Neck: Trachea midline, no thyromegaly or masses palpated, and no cervical lymphadenopathy. Supple, full range of motion without nuchal rigidity, or vertebral point tenderness. No Meningismus. Chest/axilla: Normal chest wall appearance and motion. Nontender with no deformity. No lesions are appreciated. Cardiovascular: Regular rate and rhythm with a normal S1 and S2. No gallops, murmurs, or rubs. Normal PMI, no JVD. No pulse deficits. Respiratory: Lungs have equal breath sounds bilaterally, clear to auscultation and percussion. No rales, rhonchi or wheezes noted. No increased work of breathing, no retractions or nasal flaring. Abdomen/GI: Soft, non-tender, with normal bowel sounds. No distension or tympany. No guarding or rebound. No evidence of tenderness throughout. Male : Normal genitalia with no discharge or lesions. Skin: Warm, dry with normal turgor. Normal color with no rashes, no lesions, and no evidence of cellulitis. MS/ Extremity: Pulses equal, no cyanosis. Neurovascular intact. Full, normal range of motion., bilateral aka Neuro: Awake and alert, GCS 15, oriented to person, place, time, and situation. Cranial nerves II-XII grossly intact. Motor strength 5/5 in all extremities. Sensory grossly intact. Cerebellar exam normal. Normal gait. Psych: Awake, alert, with orientation to person, place and time. Behavior, mood, and affect are within normal limits. 14:39 ECG was reviewed by the Attending Physician. 14:39 Back: pain, that is moderate, ROM is painful, normal spinal alignment noted, CVA tenderness, is absent, vertebral tenderness, is not appreciated, Vital Signs: 12:39 BP 183 / 107; Pulse 82; Resp 16; Temp 98; Pulse Ox 99% ; bp 15:59 BP 161 / 91; Pulse 78; Resp 16; Pulse Ox 95% on R/A; km10 Ketan Coma Score: 15:59 Eye Response: spontaneous(4). Motor Response: obeys commands(6). Verbal Response: km10 oriented(5). Total: 15. MDM: 12:38 Medical Screening Exam initiated arsen Administered Medications: 15:48 Not Given (Patient Refused): ns 0.9% 500 ml 500 ml IV at 1 bolus once; to be given as a km10 bolus over 30 minutes 15:55 Drug: Norvasc PO 10 mg PO once Route: PO; km10 16:01 Follow up: Response: No adverse reaction km10 15:55 Drug: Lisinopril PO 10 mg PO once Route: PO; km10 16:01 Follow up: Response: No adverse reaction km10 15:55 Drug: [place] PO 10 mg-325 mg 1 tabs PO once Route: PO; km10 16:01 Follow up: Response: No adverse reaction km10 15:55 Drug: Dexamethasone PO 10 mg PO once Route: PO; km10 16:01 Follow up: Response: No adverse reaction km10 Disposition Summary: 07/31/25 14:47 Discharge Ordered Notes: Location: Home arsen Problem: new arsen Symptoms: have improved arsen Condition: Stable arsen Diagnosis - Essential (primary) hypertension arsen - Other chronic pain - medication refill arsen Followup: arsen - With: Private Physician - When: 2 - 3 days - Reason: Recheck today's complaints, Continuance of care, Re-evaluation by your physician Followup: arsen - With: Sergio Iraheta, DO - When: 2 - 3 days - Reason: Recheck today's complaints, Continuance of care, Re-evaluation by your physician Discharge Instructions: - Discharge Summary Sheet arsen - Chronic Back Pain arsen - Chronic Pain, Adult arsen - Hypertension, Adult arsen - Hypertension, Adult, [id number] arsen - Chronic Back Pain, [id number] arsen - How to Take Your Blood Pressure, [id number] arsen - Aspirin and Your Heart arsen - Managing Your Hypertension arsen Forms: - Medication Reconciliation Form arsen - Antibiotic Education arsen - Prescription Opioid Use arsen - Patient Portal Instructions arsen - Leadership Thank You Letter arsen Prescriptions: - Norvasc 10 mg Oral Tablet - take 1 tablet ORAL route once daily; 30 tablet; Refills: 0, Product Selection [facility] Permitted - Lisinopril 10 mg Oral tablet - take 1 tablet ORAL route once daily; 30 tablet; Refills: 0, Product Selection [facility] Permitted - Hydralazine 10 mg Oral tablet - take 1 tablet ORAL route 2 times per day with food; 40 tablet; Refills: 0, [facility] Product Selection Permitted - Tylenol-Codeine #3 300mg-30mg Oral tablet - take 2 tablets ORAL route every 6 hours As needed; 20 tablet; Refills: 0, [facility] Product Selection Permitted - Dexamethasone 4mg Oral tablet - take 1 tablet ORAL route daily for 4 days; 4 tablet; Refills: 0, Product arsen Selection Permitted Signatures: Dispatcher [employer] EDRuddy Simmons MD MD cha Peltier, Brian RN RN bp Mila Haskins RN RN km10 Corrections: (The following items were deleted from the chart) 12:40 12:40 BASIC METABOLIC PANEL+C.LAB.BRZ ordered. EDMS EDMS 12:40 12:40 CBC+H.LAB.BRZ ordered. EDMS EDMS 12:40 12:40 HEPATIC FUNCTION+C.LAB.BRZ ordered. EDMS EDMS 12:40 12:40 MAGNESIUM+C.LAB.BRZ ordered. EDMS EDMS 12:40 12:40 PROBNP+C.LAB.BRZ ordered. EDMS EDMS 12:40 12:40 PROTIME (+INR)+COAG.LAB.BRZ ordered. EDMS EDMS 12:40 12:40 Troponin High Sensitivity+C.LAB.BRZ ordered. EDMS EDMS 12:40 12:40 LIPASE+C.LAB.BRZ ordered. EDMS EDMS 12:40 12:40 UA Rfx Tulio Cult if indicated+U.LAB.BRZ ordered. EDMS EDMS 12:40 12:40 COVID-19 Ag + Flu A+B Ag+I.LAB.BRZ ordered. EDMS EDMS 12:40 12:40 Chest Single View+RAD.RAD.BRZ ordered. EDMS EDMS
--- NOTE | 2025-07-31 14:48 | ER ---
Nurse's Notes [facility] Name: Deion Contreras Age: 59 yrs Sex: Male : 1965 Arrival Date: 07/31/2025 Time: 12:32 Bed 7 Private MD: Diagnosis: Essential (primary) hypertension;Other chronic pain-medication refill Presentation: 07/31 12:39 Chief complaint: Patient states: GENERALIZED PAIN SINCE LAST D/C, MED REFILL OF HOME bp MEDS. Coronavirus screen: At this time, the client does not indicate any symptoms associated with coronavirus-19. Ebola Screen: No symptoms or risks identified at this time. Initial Sepsis Screen: Does the patient meet any 2 criteria? No. Patient's initial sepsis screen is negative. Does the patient have a suspected source of infection? No. Patient's initial sepsis screen is negative. Risk Assessment: Do you want to hurt yourself or someone else? Patient reports no desire to harm self or others. Onset of symptoms is unknown. 12:39 Method Of Arrival: Wheelchair bp 12:39 Acuity: ANDRA 4 bp Triage Assessment: 12:40 General: Appears in no apparent distress. uncomfortable, Behavior is calm, cooperative, bp appropriate for age. Pain: Complains of pain in GENERALIZED. EENT: No deficits noted. Neuro: No deficits noted. Cardiovascular: No deficits noted. Respiratory: No deficits noted. GI: No signs and/or symptoms were reported involving the gastrointestinal system. : No signs and/or symptoms were reported regarding the genitourinary system. Derm: No deficits noted. Musculoskeletal: No deficits noted. Historical: - Allergies: 12:41 Ibuprofen; bp - PMHx: 12:41 chronic back pain; Hypertension; bp - Immunization history:: Adult Immunizations up to date. - Infectious Disease History:: Denies. - Social history:: Smoking status: Patient denies any tobacco usage or history of. Screenin:55 [facility] ED Fall Risk Assessment (Adult) History of falling in the last 3 months, km10 including since admission No falls in past 3 months (0 pts) Confusion or Disorientation No (0 pts) Intoxicated or Sedated No (0 pts) Impaired Gait Yes (1 pt) Mobility Assist Device Used Yes (1 pt) Altered Elimination No (0 pt) Score/Fall Risk Level 3 or more points = High Risk Oriented to surroundings, Maintained a safe environment, Educated pt \\T\\ family on fall prevention, incl call for assistance when getting out of bed. Abuse screen: Denies threats or abuse. Denies injuries from another. Nutritional screening: No deficits noted. Tuberculosis screening: No symptoms or risk factors identified. Assessment: 12:57 Reassessment: Patient appears in no apparent distress at this time. Reassessment: pt km10 refusing blood work and EKG at this time, education and information on importance for ED labs and tests provided to patient. Pt still refuses. ED provider notified. General: Appears in no apparent distress. Behavior is agitated. Pain: Complains of pain in "all over". Neuro: Level of Consciousness is awake, alert, Oriented to person, place, time, situation. Respiratory: Airway is patent Respiratory effort is even, unlabored, Respiratory pattern is regular, symmetrical. 14:00 Reassessment: Patient appears in no apparent distress at this time. Patient and/or km10 family updated on plan of care and expected duration. Pain level reassessed. Patient is alert, oriented x 3, equal unlabored respirations, skin warm/dry/pink. 15:00 Reassessment: Patient appears in no apparent distress at this time. Patient and/or km10 family updated on plan of care and expected duration. Pain level reassessed. Patient is alert, oriented x 3, equal unlabored respirations, skin warm/dry/pink. Vital Signs: 12:39 BP 183 / 107; Pulse 82; Resp 16; Temp 98; Pulse Ox 99% ; bp 15:59 BP 161 / 91; Pulse 78; Resp 16; Pulse Ox 95% on R/A; km10 Ketan Coma Score: 15:59 Eye Response: spontaneous(4). Motor Response: obeys commands(6). Verbal Response: km10 oriented(5). Total: 15. ED Course: 12:34 Patient arrived in ED. cj3 12:38 Ruddy Carias MD is Attending Physician. arsen 12:41 Triage completed. bp 12:41 Arm band placed on. bp 12:42 Mila Haskins RN is Primary Nurse. km10 14:45 Sergio Iraheta DO is Referral Physician. arsen 15:55 Patient has correct armband on for positive identification. Call light in reach. km10 Provided Education on: plan of car. Administered Medications: 15:48 Not Given (Patient Refused): ns 0.9% 500 ml 500 ml IV at 1 bolus once; to be given as a km10 bolus over 30 minutes 15:55 Drug: Norvasc PO 10 mg PO once Route: PO; km10 16:01 Follow up: Response: No adverse reaction km10 15:55 Drug: Lisinopril PO 10 mg PO once Route: PO; km10 16:01 Follow up: Response: No adverse reaction km10 15:55 Drug: [place] PO 10 mg-325 mg 1 tabs PO once Route: PO; km10 16:01 Follow up: Response: No adverse reaction km10 15:55 Drug: Dexamethasone PO 10 mg PO once Route: PO; km10 16:01 Follow up: Response: No adverse reaction km10 Outcome: 14:47 Discharge ordered by . arsen 16:00 Discharged to home via wheelchair, km10 16:00 Condition: stable 16:00 Discharge instructions given to patient, Instructed on discharge instructions, follow up and referral plans. medication usage, Demonstrated understanding of instructions, follow-up care, medications, Prescriptions given X 5 16:00 Patient left the ED. km10 Signatures: Ruddy Carias MD MD cha Peltier, Brian, RN RN Rose Lopez 3 Mila Haskins, RN RN km10
[2025-07-31] MEDS ORDERED: AMLODIPINE 10 MG TAB ONE (15:50)
[2025-07-31] MEDS ORDERED: HYDROCODONE/APAP 10/325 TAB ONE (15:51)
[2025-07-31 18:08] VITALS: TEMP 98
[2025-07-31 18:09] VITALS: BP 161/91; O2SAT 95
== END 2025-07-31 16:00 | disposition home or self-care (01) ==
LOC: ER 12:32
DX: G89.29 Other chronic pain (principal); I10 Essential (primary) hypertension; Z76.0 Encounter for issue of repeat prescription
CPT/HCPCS: 99283; J8540